=== PATIENT | female | born 1985 | race Asian ===

== ENCOUNTER 2018-05-20 07:42 | Inpatient (IN) ==
[2018-05-20] MEDS ORDERED: OXYTOCIN 30 UNITS/500 ML BAG IV PRN ×2 (08:00→08:04)
[2018-05-20] MEDS ORDERED: LACTATED RINGER'S 1,000 ML IV PRN ×3 (08:00→09:46)
--- NOTE | 2018-05-20 08:04 | History & Physical Report ---
Date of Service May 20, 2018 41 weeks and 3 days primary production received cervical Aragon last night patient is having some contractions at this time and her heart rate is category 1 group B strep positive otherwise uncomplicated Assessment & Plan (1) Post-dates : Induction of labor Pitocin will be ordered penicillin ordered History of Present Illness Primary Care Provider: NO PCP Allergies Allergy/AdvReac Type Severity Reaction Status Date / Time No Known Allergies Allergy Verified 05/15/18 20:18 Home Medications Home Medications Medication Instructions Recorded Confirmed Type vit no.781-[id number]-ptnef 1 tab PO DAILY 05/15/18 05/19/18 History [ Vitamin] Patient History Social History Preferred Language: Congolese marital status: Feels Safe at Home: Yes Smoking Status: Never smoker Hx Alcohol Use: No Hx Substance Use: No Physical Exam Physical Exam: Vital signs stayed stable chest clear normal rate and rhythm abdomen gravid Cervix 5 cm -2, 80%
[2018-05-20] MEDS ORDERED: PENICILLIN G POTASSIUM 6 MU in DEXTROSE 5% 250 ML IV STA (08:05)
[2018-05-20 08:20] LABS: Hematocrit (blood only) 36.4 % (37-47); Hemoglobin 12.7 g/dL (12.0-16.0); Mean Corpuscular Volume 98.1 fL (80-100); Mean Platelet Volume 10.4 fL (7.4-10.4); Platelet Count 186 K/uL (130-400); RDW Coefficient of Variation 12.6 % (11.5-14.5); RDW Standard Deviation 44.6 fL (36.4-46.3); Red Blood Count 3.71 M/uL (4.2-5.4); White Blood Count 6.93 K/uL (4.8-10.8)
[2018-05-20 08:24] LABS: Mean Corpuscular Hgb Conc 34.9 g/dL (32-36)
[2018-05-20] MEDS: LACTATED RINGER'S 1,000 ML IV SCH ×2 (08:39→17:49)
--- NOTE | 2018-05-20 08:39 | History & Physical Report ---
Date of Service May 20, 2018 Assessment & Plan (1) Post-dates : Donis Mane is 33 y/o who presents for induction of labor at 41.4 weeks for post-dates . She is B+, GBS+, Rubella immune, VDRL unreactive, G/C-. Noted that she has not had prior exposure or vaccination to varicella. - Induction of labor, continue routine care. - Epidural analgesia for pain management plan. History of Present Illness Chief Complaint: Induction of labor Primary Care Provider: NO PCP Donis Mane is 33 y/o who presents for induction of labor at 41.4 weeks for post-dates . She is B+, GBS+, Rubella immune, VDRL unreactive, G/C-. Noted that she has not had prior exposure or vaccination to varicella. Otherwise, no acute concerns. Pain management plan is for epidural. 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 or abnormal paps Review of Systems All systems reviewed & are unremarkable except as noted in HPI & below Physical Exam Vital Signs (Past 24 Hours): Last Vital Signs Temp 36.7 C 05/20/18 08:07 Pulse 72 05/20/18 08:04 Resp 18 05/20/18 08:07 BP 112/78 05/20/18 08:04 Constitutional: WD/WN, vitals as above cooperative and comfortable Eyes: + anicteric sclerae and EOM intact bilaterally Neck: normal visual inspection and trachea midline Respiratory: normal respiratory effort, lungs clear to auscultation Cardiovascular: RRR, no murmur, no edema Gastrointestinal (Abdomen): Percussion/Palpation: abdomen nontender gravid uterus Musculoskeletal: Head/Neck/Chest: normocephalic and head atraumatic Skin: no rashes, warm and dry Neurologic: moves all extremities and awake Psychiatric: A+Ox3, euthymic affect Genitourinary: OB Exam Monitor Tracing: + external FHT monitor used, + external uterine monitor used and + category I EFM: Baseline 145 with moderate variability, accels present, no decels Tocodynamometer: mild irregular contractions Results & Data Laboratory Results Laboratory Results - last 24 hr 05/20/18 08:09 WBC 6.93 RBC 3.71 L Hgb 12.7 Hct 36.4 L MCV 98.1 MCH 34.2 H MCHC 34.9 RDW Std Deviation 44.6 RDW Coeff of Naeem 12.6 Plt Count 186 MPV 10.4 Code Status & VTE Plan Code Status full
--- NOTE | 2018-05-20 08:56 | Anesthesiology Consultation ---
Date of Service May 20, 2018 Assessment & Plan Chart Review Chart Review: Patient NOT seen in Pre Admission Testing and Acceptable Risk for Labor Epidural Consults Requested none ASA ASA2 Proposed Anesthesia Anesthesia Type: Labor Epidural Risk / Benefits Reviewed With: PT / POA / Parent / Guardian, Accepts Plan and Informed Consent Obtained NPO Date Last Intake of Fluids: 05/20/18 Time Last Intake of Fluids: 07:00 Date Last Intake of Solids: 05/20/18 Time Last Intake of Solids: 07:00 History Height/Weight Height: 1.73 m Weight: 64.41 kg Allergies Allergy/AdvReac Type Severity Reaction Status Date / Time No Known Allergies Allergy Verified 05/15/18 20:18 Medications Home Medications Medication Instructions Recorded Confirmed Last Taken vit no.[id number]-[id number] 1 tab PO DAILY 05/15/18 05/19/18 05/19/18 [ Vitamin] Active Medications Generic Name Dose Route Start Last Admin Trade Name Freq PRN Reason Stop Dose Admin Lactated Ringer's 1,000 mls @ 125 mls/hr 05/20/18 08:00 05/20/18 08:39 Lr IV 05/22/18 07:59 125 mls/hr .Q8H FREDA Administration Past Medical History Medical History Post-dates GERD (gastroesophageal reflux disease) Occasional Past Anesthesia History Denies any h/o or FM of previous anesthesia Motion Sickness Screening History of Motion Sickness: No Social History Smoking Status: Never smoker Do You Dip or Chew Tobacco: No Hx Alcohol Use: No Hx Substance Use: No substance use type: does not use Exercise / Class Metabolic Activity II 4-5 Yardwork/Stairs/Walk up hill Physical Exam Vital Signs Last Vital Signs Temp 36.7 C 05/20/18 08:07 Pulse 72 05/20/18 08:04 Resp 18 05/20/18 08:07 BP 112/78 05/20/18 08:04 ENMT Mouth: no TMJ abnormality and no TMJ clicking Thyromental Distance: > or= 3.5 Finger Breadths Mallampati Class: II Neck normal visual inspection; neck extension not limited Respiratory Auscultation: lungs clear to auscultation bilaterally Cardiovascular Rate/Rhythm: regular rate and regular rhythm Testing Laboratory Results 05/20/18 08:09
[2018-05-20] MEDS ORDERED: ePHEDrine sulfate 50 MG/ML AMP ONE ×2 (09:25→20:54)
[2018-05-20] MEDS ORDERED: BUPIVACAINE 0.25% 30 ML VIAL ONE (09:25)
[2018-05-20] MEDS ORDERED: fentaNYL 2MCG/ML ROPIV 1.25MG/ML 100 ML BAG EPI ONE (09:26)
[2018-05-20] MEDS: fentaNYL citrate 100 MCG/2 ML VIAL ONE ×2 (09:29→09:30)
[2018-05-20] MEDS ORDERED: NALOXONE HCL 1 MG in SODIUM CHLORIDE 0.9% 1000ML 1,000 ML IV PRN ×2 (09:46→21:08)
[2018-05-20] MEDS ORDERED: fentaNYL 2MCG/ML ROPIV 1.25MG/ML 100 ML BAG EPI PRN (09:46)
[2018-05-20] MEDS ORDERED: DiphenhydrAMINE HCL 50 MG/ML VIAL IV PRN ×2 (09:46→21:08)
[2018-05-20] MEDS ORDERED: ePHEDrine sulfate 50 MG/ML AMP IV PRN ×3 (09:46→21:08)
[2018-05-20] MEDS ORDERED: NALBUPHINE HCL INJ 10 MG/ML AMP IV PRN ×2 (09:46→21:08)
[2018-05-20] MEDS ORDERED: PROMETHAZINE HCL 12.5 MG in SODIUM CHLORIDE 0.9% 50 ML IV PRN ×2 (09:46→19:56)
[2018-05-20] MEDS ORDERED: NALOXONE HCL 0.4 MG/1 ML VIAL/CARP IV PRN ×2 (09:46→21:08)
[2018-05-20] MEDS ORDERED: ONDANSETRON INJ 2 MG/ML 2 ML VIAL IV PRN ×2 (09:46→19:56)
--- NOTE | 2018-05-20 11:42 | Obstetrical Progress Note ---
Date of Service May 20, 2018 Requested epidural. Still 5cm, -2. AROM for clear fluid. Continue Pitocin and PCN Cat 1 Physical Exam Vital Signs (Past 24 Hours): Last Vital Signs Temp 36.7 C 05/20/18 10:51 Pulse 85 05/20/18 11:36 Resp 18 05/20/18 10:51 BP 114/64 05/20/18 11:35 Pulse Ox 98 05/20/18 11:36
[2018-05-20] MEDS: PENICILLIN G POTASSIUM 3 MU in DEXTROSE 5% 100 ML IV PRN ×3 (12:37→16:41)
--- NOTE | 2018-05-20 14:18 | Obstetrical Progress Note ---
Date of Service May 20, 2018 Cervix still 5 cm -1 there is no molding she is on Pitocin heart rate category 1 I placed an IUPC to determine if her contractions are adequate Physical Exam Vital Signs (Past 24 Hours): Last Vital Signs Temp 36.5 C 05/20/18 13:25 Pulse 54 L 05/20/18 14:16 Resp 18 05/20/18 14:00 BP 105/70 05/20/18 13:30 Pulse Ox 98 05/20/18 14:16
--- NOTE | 2018-05-20 16:09 | Obstetrical Progress Note ---
Date of Service May 20, 2018 250 MVU. Adequate Physical Exam Vital Signs (Past 24 Hours): Last Vital Signs Temp 36.6 C 05/20/18 15:31 Pulse 52 L 05/20/18 16:06 Resp 20 05/20/18 15:31 BP 107/67 05/20/18 15:31 Pulse Ox 98 05/20/18 16:06
--- NOTE | 2018-05-20 17:53 | Obstetrical Progress Note ---
Date of Service May 20, 2018 Cervix 6 cm now heart rate is category 1 contractions are adequate by [place] units Patient has progressed from 5 cm to 6 cm from 8 in the morning to approximately 6 PM at night this is certainly slow progress. Discussed checking her again in approximately 90 minutes certainly contractions are strong enough and I did dis cuss the possibility of section Physical Exam Vital Signs (Past 24 Hours): Last Vital Signs Temp 36.6 C 05/20/18 15:31 Pulse 71 05/20/18 17:51 Resp 20 05/20/18 16:32 BP 119/67 05/20/18 17:31 Pulse Ox 99 05/20/18 17:51
[2018-05-20] MEDS ORDERED: ATROPINE SULFATE 0.1 MG/ML 10ML SYR IV PRN (19:56)
[2018-05-20] MEDS ORDERED: fentaNYL citrate 100 MCG/2 ML VIAL IV PRN (19:56)
[2018-05-20] MEDS ORDERED: PHENYLEPHRINE 100MCG/ML 5ML SYR IV PRN (19:56)
--- NOTE | 2018-05-20 19:58 | Anesthesiology Consultation ---
Date of Service May 20, 2018 Assessment & Plan Chart Review Chart Review: Acceptable Risk for Surgery and Patient NOT seen in Pre Admission Testing Consults Requested none ASA ASA2E Proposed Anesthesia Anesthesia Type: MAC Epidural Risk / Benefits Reviewed With: PT / POA / Parent / Guardian, Accepts Plan and Informed Consent Obtained NPO Date Last Intake of Fluids: 05/20/18 Time Last Intake of Fluids: 19:00 Date Last Intake of Solids: 05/20/18 Time Last Intake of Solids: 07:00 History Surgery Operation Date: 05/20/18 19:55 Proposed Procedures p Section in LD - J. Hank Singh MD, FACOG Height/Weight Height: 1.73 m Weight: 64.41 kg Allergies Allergy/AdvReac Type Severity Reaction Status Date / Time No Known Allergies Allergy Verified 05/15/18 20:18 Medications Home Medications Medication Instructions Recorded Confirmed Last Taken vit no.775-ofxr-[id number] 1 tab PO DAILY 05/15/18 05/20/18 05/20/18 [ Vitamin] 1 Active Medications Generic Name Dose Route Start Last Admin Trade Name Freq PRN Reason Stop Dose Admin Citric Acid/Sodium Citrate 30 ml 05/20/18 20:15 05/20/18 20:15 Bicitra PO 05/20/18 22:00 30 ml PREOP@2014 FREDA Administration Lactated Ringer's 1,000 mls @ 999 mls/hr 05/20/18 08:00 05/20/18 10:03 Lr IV 06/19/18 07:59 0 mls/hr .Q1H1M PRN Infusion (Pre-Anesthesia) Lactated Ringer's 1,000 mls @ 125 mls/hr 05/20/18 08:00 05/20/18 17:49 Lr IV 05/22/18 07:59 125 mls/hr .Q8H FREDA Administration Penicillin G Potassium 3 mu/ 106 mls @ 100 mls/hr 05/20/18 12:00 05/20/18 1 6:41 Dextrose IV 05/30/18 11:59 106 mls/hr Q4H PRN Administration Give until delivery Oxytocin 30 units in 500 mls @ 21 mls/hr 05/20/18 08:04 05/20/18 16:40 Pitocin IV 05/22/18 08:03 1.26 units/hr .[id number] PRN 21 mls/hr Labor Induction/Augmentation Titration Protocol 1.26 UNITS/HR Cefazolin Sodium 2,000 mg in 15 mls @ 3.75 mls/min 05/20/18 20:15 05/20/18 20:22 Ancef 2000mg IV 05/20/18 22:00 3.75 mls/min PREOP@2015 FREDA Administration Ondansetron HCl 4 mg 05/20/18 09:46 05/20/18 12:41 Zofran IV 05/21/18 09:45 4 mg Q6H PRN Administration Nausea And Vomiting Ropivacaine 100 ml 05/20/18 09:46 05/20/18 16:24 Epidural (L&D) EPI 05/21/18 09:45 12 ml PRN PRN Administration Pain R/T Labor Protocol Past Medical History Medical History Post-dates GERD (gastroesophageal reflux disease) Occasional No known health problems Past Family History Family History Other No history of previous surgery No known health problems Past Surgical History Surgical History No history of previous surgery Past Anesthesia History Denies any h/o or FM of previous anesthesia Motion Sickness Screening History of Motion Sickness: No Social History Smoking Status: Never smoker Do You Dip or Chew Tobacco: No Hx Alcohol Use: No Hx Substance Use: No substance use type: does not use Exercise / Class Metabolic Activity II 4-5 Yardwork/Stairs/Walk up hill Physical Exam Vital Signs Last Vital Signs Temp 36.9 C 05/20/18 19:07 Pulse 75 05/20/18 20:21 Resp 20 05/20/18 18:10 BP 119/76 05/20/18 20:19 Pulse Ox 100 05/20/18 20:21 ENMT Mouth: no TMJ abnormality and no TMJ clicking Thyromental Distance: > or= 3.5 Finger Breadths Mallampati Class: II Neck normal visual inspection; neck extension not limited Respiratory Auscultation: lungs clear to auscultation bilaterally Cardiovascular Rate/Rhythm: regular rate and regular rhythm Testing Laboratory Results 05/20/18 08:09 Blood Type B Positive 05/20/18 08:09 Antibody Screen NEGATIVE 05/20/18 08:09
[2018-05-20] MEDS ORDERED: OXYTOCIN 10 UNITS/ML VIAL ONE ×3 (20:02)
[2018-05-20] MEDS ORDERED: MoRPHine SULFATE PF 1 MG/ML 10 ML AMP/VIAL ONE (20:03)
[2018-05-20] MEDS ORDERED: fentaNYL citrate 100 MCG/2 ML VIAL ONE (20:03)
--- NOTE | 2018-05-20 20:03 | Obstetrical Progress Note ---
Date of Service May 20, 2018 Patient is still 6 cm has adequate labor by [facility] with an IUPC she arrived 12 hours ago at 5 cm and despite Pitocin AROM is not progressing there is significantly more molding as well I have recommended section the patient agrees I did offer labor and continued induction discussed the risks of this we discussed the risks of especially the risks of infection with prolonged rupture of membranes being higher in her case we discussed also risks of injury to bowel bladder ureter vessels deep vein thrombosis pulmonary embolus will make arrangements for section Physical Exam Vital Signs (Past 24 Hours): Last Vital Signs Temp 36.9 C 05/20/18 19:07 Pulse 85 05/20/18 19:56 Resp 20 05/20/18 18:10 BP 135/75 05/20/18 19:50 Pulse Ox 100 05/20/18 19:56
[2018-05-20] MEDS ORDERED: CEFAZOLIN 2000MG 2,000 MG/15 ML SYR IV SCH (20:15)
[2018-05-20] MEDS ORDERED: CITRIC ACID/SODIUM CITRATE 15 ML UDC PO SCH (20:15)
--- NOTE | 2018-05-20 20:16 | History & Physical Bridge Note ---
Date of Service May 20, 2018 Plan Section History & Physical Bridge Note I have examined the patient, reviewed the History & Physical and in the interval since the performance of the History & Physical I have noted the following changes of clinical significance: no changes noted
[2018-05-20] MEDS ORDERED: PROMETHAZINE HCL INJ 25 MG/ML 1 ML VIAL ONE (20:55)
[2018-05-20] MEDS ORDERED: PHENYLEPHRINE HCL 10 MG/ML VIAL ONE (20:55)
[2018-05-20] MEDS ORDERED: NALOXONE HCL 0.08 MG in SYRINGE 1.8 ML IV PRN (21:08)
[2018-05-20] MEDS ORDERED: KETOROLAC 30 MG/ML VIAL IV PRN (21:08)
[2018-05-20] MEDS ORDERED: MoRPHine SULFATE PF 1 MG/ML 10 ML AMP/VIAL EPI ONE (21:08)
[2018-05-20] MEDS ORDERED: MEPERIDINE HCL 25 MG/ML CARP IV PRN (21:08)
[2018-05-20] MEDS ORDERED: PROMETHAZINE HCL 25 MG in SODIUM CHLORIDE 0.9% 50 ML IV PRN (21:08)
[2018-05-20] MEDS ORDERED: LACTATED RINGER'S 500 ML IV PRN (21:08)
[2018-05-20] MEDS ORDERED: MoRPHine SULFATE 2 MG/ML CARP IV PRN (21:08)
[2018-05-20] MEDS ORDERED: NO NARCOTICS OR SEDATIVES SCH (21:15)
[2018-05-20] MEDS ORDERED: SODIUM CHLORIDE 0.9% 1000ML 1,000 ML IV SCH (21:15)
[2018-05-20] MEDS ORDERED: SUPERCREAM 0.870% 15 GM JAR EXT PRN (21:20)
[2018-05-20] MEDS ORDERED: MAGNESIUM HYDROXIDE SUSP 30 ML UDC PO PRN (21:20)
[2018-05-20] MEDS ORDERED: HYDROCORTISONE ACETATE 25 MG SUPP PR PRN (21:20)
[2018-05-20] MEDS ORDERED: DIPHTHERIA/TETANUS/PERTUSSIS 0.5 ML SYR/VIAL IM ONE (21:20)
[2018-05-20] MEDS ORDERED: BENZOCAINE 20% AER SPR 82.5 GM CAN EXT PRN (21:20)
[2018-05-20] MEDS ORDERED: SENNA 8.6 MG TAB PO PRN (21:20)
[2018-05-20] MEDS ORDERED: LACTATED RINGER'S 1,000 ML IV SCH (21:30)
--- NOTE | 2018-05-20 21:30 | Operative Report ---
Post Operative Report Pre & Post Diagnosis Operation Date: 05/20/18 19:55 <No data on this case meets the specified criteria> Preoperative diagnosis failure to progress postoperative diagnosis failure to progress Procedure Operation Date: 05/20/18 19:55 <No data on this case meets the specified criteria> Low segment transverse section Surgeon Lillian Singh MD, FACOG Ornamental [employer] BROOKLYNN Angelo Estimated Blood Loss 600 Findings Consistent with Post-Op Diagnosis Specimens Cord gases cord blood Description of Procedure Patient was given an increase in epidural anesthetic Aragon catheter placed by nursing she was in a leftward tilt in a supine position prepped and draped IV antibiotics 2 g Ancef given preoperatively skin was tested with pickups with teeth and found to be adequate for incision Pfannenstiel incision made with scalpel dissecting down through subcutaneous fat to the fascia in the midline fascia cut laterally with the curved Abrams scissors and fascia released superiorly and inferiorly from the rectus muscles rectus muscle split peritoneal cavity entered bluntly in a superior location this was then enlarged to allow exposure bladder retractor placed [facility] to cut away the bladder flap and the low segment. Low transverse incision made with scalpel entry was done bluntly with the header setup operator's finger and then hysterotomy site enlarged to allow delivery of the baby manually with the header setup operator's finger baby was delivered in a vertex position by flexion of the head and then pressure by the bilingual executive assistant on the abdomen tight nuchal cord had to be clamped and cut before delivery of the baby fluid was clear live vigorous male infant. Cord gases obtained cord blood obtained baby was handed to pediatrics Placenta was removed uterus was exteriorized we ensured all material was removed from inside of the uterus on inspection the adnexa were normal as was the uterus IV Pitocin was started and then uterus was closed in the usual 2 layer fashion with 0 Monocryl first layer locked second layer not locked after generous irrigation and suction of the cul-de-sac and bladder flap regions of the uterus was placed back in the peritoneal cavity and hemostasis was found to be excellent urine was clear in the Aragon bag at this stage Fascia was inspected and subfascial areas were hemostatic fascia closed with 0 Vicryl subtendinous fat irrigated and closed with 3-0 Vicryl 4-0 subcuticular Monocryl closure and Steri-Strips applied sponge management counts correct I attest to the content of the Intraoperative Record and any orders documented therein. Any exceptions are noted below.
[2018-05-20 21:31] LABS: Base Excess Cord Venous Blood -1.9 mEq/L (-7.7-1.9); Cord Venous Blood HCO3 25 mmol/L (18.4-26.8); Cord Venous Blood PCO2 48 mmHg (30.4-57.2); Cord Venous Blood PO2 28 mmHg (14.1-43.3); Cord Venous Blood pH 7.33 (7.20-7.44); O2 Saturation Cord Venous Bld 62.9 % (<68)
--- NOTE | 2018-05-20 22:56 | Anesthesiology Progress Note ---
Date of Service May 20, 2018 Anesthesia Post Procedure Vital Signs Vital Signs: Temp Pulse Resp BP Pulse Ox Pulse Ox 05/20/18 22:50 62 99 05/20/18 22:47 82 117/76 05/20/18 22:45 78 98 05/20/18 22:40 86 99 05/20/18 22:37 89 112/79 05/20/18 22:35 72 99 05/20/18 22:30 84 99 05/20/18 22:27 77 18 121/59 L 97 05/20/18 22:25 94 H 99 05/20/18 22:20 86 97 05/20/18 22:17 87 18 117/69 97 05/20/18 22:15 83 98 05/20/18 22:10 90 97 05/20/18 22:06 109 H 18 127/64 97 05/20/18 22:05 103 H 96 05/20/18 22:00 102 H 99 05/20/18 21:57 100 H 98 05/20/18 21:55 92 H 98 05/20/18 21:50 99 H 98 05/20/18 21:47 90 18 108/62 98 05/20/18 21:45 97 H 97 05/20/18 21:42 110 H 91 05/20/18 21:40 96 H 96 05/20/18 21:37 107 H 18 91/50 L 97 05/20/18 21:36 103 H 90 05/20/18 21:35 97 H 97 05/20/18 21:30 98 H 97 05/20/18 21:27 36.5 C 105 H 18 95/55 L 97 05/20/18 20:21 75 100 05/20/18 20:19 82 119/76 05/20/18 20:17 64 128/76 05/20/18 20:16 72 99 05/20/18 20:11 76 99 05/20/18 20:08 66 94 05/20/18 20:06 73 133/91 100 05/20/18 20:01 78 100 05/20/18 19:56 85 100 05/20/18 19:51 103 H 100 05/20/18 19:50 68 135/75 05/20/18 19:46 60 100 05/20/18 19:41 58 L 100 05/20/18 19:36 57 L 100 05/20/18 19:34 60 131/78 05/20/18 19:31 59 L 100 05/20/18 19:26 58 L 100 05/20/18 19:21 69 100 05/20/18 19:20 57 L 127/73 05/20/18 19:16 68 100 05/20/18 19:15 58 L 130/72 05/20/18 19:13 193/141 H 05/20/18 19:11 62 100 05/20/18 19:07 36.9 C 61 91 05/20/18 19:06 65 95 05/20/18 19:01 60 100 05/20/18 18:56 63 100 05/20/18 18:51 58 L 100 05/20/18 18:46 61 100 05/20/18 18:41 59 L 100 05/20/18 18:36 59 L 100 05/20/18 18:31 60 100 05/20/18 18:30 60 122/73 05/20/18 18:26 72 100 05/20/18 18:25 95 H 91 05/20/18 18:21 66 100 05/20/18 18:16 85 100 05/20/18 18:15 77 93 05/20/18 18:11 58 L 100 05/20/18 18:10 37.1 C 20 05/20/18 18:06 62 100 05/20/18 18:01 61 99 05/20/18 18:00 20 05/20/18 17:56 60 100 05/20/18 17:52 71 91 05/20/18 17:51 71 99 05/20/18 17:46 96 H 99 05/20/18 17:41 60 89 L 05/20/18 17:39 59 L 90 05/20/18 17:36 54 L 99 05/20/18 17:31 54 L 119/67 100 05/20/18 17:26 53 L 100 05/20/18 17:21 53 L 100 05/20/18 17:16 55 L 100 05/20/18 17:15 37.1 C 05/20/18 17:11 52 L 100 05/20/18 17:06 54 L 100 05/20/18 17:01 52 L 100 05/20/18 16:56 53 L 100 05/20/18 16:51 54 L 96 05/20/18 16:46 51 L 100 05/20/18 16:41 50 L 100 05/20/18 16:36 70 99 05/20/18 16:34 60 90 05/20/18 16:33 51 L 90/54 L 05/20/18 16:32 20 05/20/18 16:31 54 L 99 05/20/18 16:26 64 98 05/20/18 16:21 52 L 100 05/20/18 16:16 52 L 99 05/20/18 16:11 52 L 99 05/20/18 16:06 52 L 98 05/20/18 16:05 54 L 94 05/20/18 16:01 54 L 99 05/20/18 15:56 55 L 98 05/20/18 15:51 53 L 99 05/20/18 15:46 52 L 97 05/20/18 15:41 54 L 99 05/20/18 15:36 55 L 98 05/20/18 15:31 36.6 C 55 L 20 107/67 100 05/20/18 15:26 52 L 100 05/20/18 15:21 54 L 99 05/20/18 15:16 55 L 99 05/20/18 15:11 54 L 98 05/20/18 15:06 53 L 99 05/20/18 15:01 50 L 98 05/20/18 14:58 62 92 05/20/18 14:56 52 L 98 05/20/18 14:51 55 L 99 05/20/18 14:46 56 L 98 05/20/18 14:41 50 L 98 05/20/18 14:36 49 L 97 05/20/18 14:31 59 L 81/53 L 98 05/20/18 14:26 53 L 97 05/20/18 14:21 51 L 98 05/20/18 14:16 54 L 98 05/20/18 14:11 53 L 98 05/20/18 14:06 53 L 97 05/20/18 14:01 55 L 98 05/20/18 14:00 18 05/20/18 13:56 53 L 98 05/20/18 13:51 54 L 97 05/20/18 13:46 61 97 05/20/18 13:41 57 L 98 05/20/18 13:36 58 L 98 05/20/18 13:31 56 L 98 05/20/18 13:30 53 L 105/70 05/20/18 13:26 56 L 97 05/20/18 13:25 36.5 C 18 05/20/18 13:21 55 L 98 05/20/18 13:16 61 98 05/20/18 13:11 74 96 05/20/18 13:06 55 L 97 05/20/18 13:01 59 L 97 05/20/18 12:56 59 L 97 05/20/18 12:51 57 L 97 05/20/18 12:46 52 L 97 05/20/18 12:41 58 L 98 05/20/18 12:36 55 L 98 05/20/18 12:32 52 L 18 115/72 05/20/18 12:31 58 L 99 05/20/18 12:26 58 L 98 05/20/18 12:21 57 L 98 05/20/18 12:16 55 L 98 05/20/18 12:11 63 98 05/20/18 12:06 57 L 98 05/20/18 12:01 59 L 98 05/20/18 12:00 18 05/20/18 11:56 58 L 97 05/20/18 11:51 60 98 05/20/18 11:46 59 L 99 05/20/18 11:41 74 99 05/20/18 11:36 85 98 05/20/18 11:35 115 H 114/64 05/20/18 11:31 57 L 99 05/20/18 11:26 53 L 99 05/20/18 11:21 56 L 99 05/20/18 11:19 51 L 105/70 05/20/18 11:16 68 98 05/20/18 11:11 56 L 98 05/20/18 11:06 57 L 114/72 98 05/20/18 11:01 60 97 05/20/18 10:56 58 L 98 05/20/18 10:51 36.7 C 60 18 98 05/20/18 10:49 56 L 115/77 05/20/18 10:46 72 96 05/20/18 10:41 62 99 05/20/18 10:36 63 98 05/20/18 10:34 64 110/73 05/20/18 10:31 69 98 05/20/18 10:30 18 05/20/18 10:26 58 L 98 05/20/18 10:21 65 97 05/20/18 10:19 60 107/62 05/20/18 10:16 66 97 05/20/18 10:15 18 05/20/18 10:11 69 97 05/20/18 10:06 65 111/76 98 05/20/18 10:01 63 97 05/20/18 10:00 18 05/20/18 09:56 77 108/75 99 05/20/18 09:51 69 98 05/20/18 09:46 69 98 05/20/18 09:45 68 18 110/68 05/20/18 09:43 86 110/63 05/20/18 09:41 81 107/62 99 05/20/18 09:40 18 05/20/18 09:39 78 116/64 05/20/18 09:37 67 106/60 05/20/18 09:36 85 100 05/20/18 09:35 90 18 157/79 H 05/20/18 09:33 72 121/86 05/20/18 09:31 80 120/83 98 05/20/18 09:30 18 05/20/18 09:29 72 118/79 05/20/18 09:27 72 114/85 05/20/18 09:26 76 98 05/20/18 09:25 76 112/74 05/20/18 09:23 71 130/83 05/20/18 09:21 78 130/77 98 05/20/18 09:19 77 133/76 05/20/18 09:17 70 117/76 05/20/18 09:16 80 97 05/20/18 09:15 81 116/82 99 05/20/18 09:13 78 119/83 05/20/18 09:11 71 125/75 98 05/20/18 08:07 36.7 C 18 05/20/18 08:04 72 112/78 Pain Intensity Bilateral Abdomen: Pain Intensity: 0 Notes Mental Status: alert / awake / arousable Patient Amnestic to Procedure: Yes Nausea / Vomiting: adequately controlled Pain: adequately controlled Airway Patency, RR, SpO2: stable & adequate BP & HR: stable & adequate Neuraxial Anesthesia: was administered and sensory block is resolving Anesthetic Complications: no major complications apparent Notes: Doing well, VSS.
--- NOTE | 2018-05-20 22:56 | Anesthesia Procedure Note ---
Date of Service May 20, 2018 Anesthesia Post Epidural Note Vital Signs Vital Signs: Temp Pulse Resp BP Pulse Ox 36.5 C 62 18 117/76 99 05/20/18 21:27 05/20/18 22:50 05/20/18 22:27 05/20/18 22:47 05/20/18 22:50 Pain Intensity Bilateral Abdomen: Pain Intensity: 0 Notes Mental Status: alert / awake / arousable Patient Amnestic to Procedure: No Nausea / Vomiting: adequately controlled Pain: adequately controlled Airway Patency, RR, SpO2: stable & adequate BP & HR: stable & adequate Hydration State: stable & adequate Anesthetic Complications: no major complications apparent Epidural: Removed without complications and With tip intact Notes: Pt doing well. No complaints of RUBALCAVA, backache. Epidural site looks clean and dry without signs of erythema or edema.
[2018-05-20] MEDS ORDERED: OXYTOCIN 30 UNITS in LACTATED RINGER'S 1,000 ML IV SCH (23:45)
--- NOTE | 2018-05-21 07:02 | Obstetrical Progress Note ---
Date of Service <Arturo Whitehead DO - Last Filed: 05/21/18 07:02> May 21, 2018 Assessment & Plan <Arturo Whitehead DO - Last Filed: 05/21/18 07:02> (1) delivery delivered: Donis Mane is 33 y/o who presents for induction of labor at 41.4 weeks for post-dates . She is B+, GBS+, Rubella immune, VDRL unreactive, G/C-. Noted that she has not had prior exposure or vaccination to varicella. - for failure to descent after induction of labor - continue with routine post-op/ care (2) Post-dates : Donis Mane is 33 y/o who presents for induction of labor at 41.4 weeks for post-dates . She is B+, GBS+, Rubella immune, VDRL unreactive, G/C-. Noted that she has not had prior exposure or vaccination to varicella. Subjective <Arturo Whitehead DO - Last Filed: 05/21/18 07:02> Lochia:: Reny Dykes states she is doing well this morning. She denies fever, chills, chest pain, shortness of breath, nausea, vomiting. Physical Exam <Arturo Whitehead DO - Last Filed: 05/21/18 07:02> Vital Signs (Past 24 Hours) Last Vital Signs Temp 36.9 C 05/21/18 03:30 Pulse 60 05/21/18 03:30 Resp 18 05/21/18 06:24 BP 113/67 05/21/18 03:30 Pulse Ox 98 05/21/18 06:24 Constitutional WD/WN, vitals as above cooperative and comfortable Eyes + anicteric sclerae and EOM intact bilaterally Neck normal visual inspection and trachea midline Respiratory normal respiratory effort, lungs clear to auscultation Cardiovascular RRR, no murmur, no edema Gastrointestinal (Abdomen) Percussion/Palpation: abdomen nontender surgical bandage over surgical wound is intact, dry. Musculoskeletal Head/Neck/Chest: normocephalic and head atraumatic Skin no rashes, warm and dry Neurologic moves all extremities and awake Psychiatric A+Ox3, euthymic affect Results & Data <Arturo Whitehead DO - Last Filed: 05/21/18 07:02> Laboratory Results Laboratory Results - last 24 hr 05/20/18 05/20/18 05/20/18 08:09 08:09 20:46 WBC 6.93 RBC 3.71 L Hgb 12.7 Hct 36.4 L MCV 98.1 MCH 34.2 H MCHC 34.9 RDW Std Deviation 44.6 RDW Coeff of Naeem 12.6 Plt Count 186 MPV 10.4 Cord ABG pH Cord ABG pCO2 TNP Cord ABG pO2 TNP Cord ABG HCO3 TNP Cord ABG Base Excess TNP Cord ABG O2 Sat TNP Cord VBG pH Cord VBG pCO2 Cord VBG pO2 Cord VBG HCO3 Cord VBG Base Excess Cord VBG O2 Sat Barometric Pressure Blood Gas Comments TNP Blood Type B Positive Antibody Screen NEGATIVE 05/20/18 20:46 WBC RBC Hgb Hct MCV MCH MCHC RDW Std Deviation RDW Coeff of Naeem Plt Count MPV Cord ABG pH Cord ABG pCO2 Cord ABG pO2 Cord ABG HCO3 Cord ABG Base Excess Cord ABG O2 Sat Cord VBG pH 7.33 Cord VBG pCO2 48 Cord VBG pO2 28 Cord VBG HCO3 25 Cord VBG Base Excess -1.9 Cord VBG O2 Sat 62.9 Barometric Pressure 726.7 Blood Gas Comments INFANT A Blood Type Antibody Screen Medications Administered Oxytocin 30 units/ Lactated (Ringer's) 1,003 mls @ 125 mls/hr IV .Q8H2M FREDA Stop: 05/21/18 07:46 Last Infusion: 05/21/18 06:23 Dose: 125 mls/hr Documented by: [id number] Cosigned by: [id number] Admin: 05/20/18 23:41 Dose: 125 mls/hr Documented by: [id number] Cosigned by: [id number] <Lillian Singh MD, FACOG - Last Filed: 05/21/18 07:09> Co-Signing Physician Notes Resident Physician Supervision Note: I interviewed and examined the patient. Discussed with Dr. Waggoner and agree with findings and plan as documented in the note. Any exceptions or clarifica tions are listed here: [None] Documented By: Lillian Singh MD, FACOG
[2018-05-21 07:24] LABS: Basophils # (auto) 0.01 K/uL (0-0.2); Basophils % (auto) 0.1 %; Hematocrit (blood only) 31.4 % (37-47); Hemoglobin 10.7 g/dL (12.0-16.0); Immature Granulocytes # (auto) 0.02 K/uL (0.00-0.02); Immature Granulocytes % (auto) 0.2 %; Lymphocytes # (auto) 1.54 K/uL (1.2-3.4); Lymphocytes % (auto) 12.4 %; Mean Corpuscular Hgb Conc 34.1 g/dL (32-36); Mean Corpuscular Volume 96.6 fL (80-100); Mean Platelet Volume 10.3 fL (7.4-10.4); Monocytes # (auto) 0.59 K/uL (0.11-0.59); Monocytes % (auto) 4.8 %; Neutrophils # (auto) 10.23 K/uL (1.4-6.5); Neutrophils % (auto) 82.5 %; Platelet Count 156 K/uL (130-400); RDW Coefficient of Variation 12.8 % (11.5-14.5); RDW Standard Deviation 44.6 fL (36.4-46.3); Red Blood Count 3.25 M/uL (4.2-5.4); White Blood Count 12.39 K/uL (4.8-10.8)
[2018-05-21] MEDS: DOCUSATE SODIUM 100 MG CAP PO SCH ×2 (08:58→20:28)
[2018-05-21] MEDS: PRENATAL VITAMIN 1 TAB PO SCH (08:58)
[2018-05-21] MEDS ORDERED: PRENATAL VITAMIN 1 TAB PO SCH (09:00)
[2018-05-21] MEDS: SIMETHICONE 80 MG CHEW PO SCH ×4 (10:04→20:28)
--- NOTE | 2018-05-21 10:12 | Anesthesiology Progress Note ---
Date of Service May 21, 2018 Anesthesia Post Procedure Vital Signs Vital Signs: Temp Pulse Pulse Resp BP BP Pulse Ox 05/21/18 09:15 15 98 05/21/18 08:00 15 98 05/21/18 07:47 37.5 C 62 16 111/69 98 05/21/18 07:45 05/21/18 07:00 16 98 05/21/18 06:24 18 98 05/21/18 05:29 18 99 05/21/18 04:30 18 98 05/21/18 03:30 36.9 C 60 18 113/67 97 05/21/18 03:04 16 97 05/21/18 01:52 18 99 05/21/18 00:40 20 100 05/20/18 23:45 36.7 C 66 18 125/78 99 05/20/18 23:31 69 132/81 05/20/18 23:30 65 100 05/20/18 23:27 61 16 134/77 05/20/18 23:25 72 99 05/20/18 23:20 71 99 05/20/18 23:17 63 128/74 05/20/18 23:15 64 99 05/20/18 23:10 66 99 05/20/18 23:07 62 127/71 05/20/18 23:05 74 100 05/20/18 23:00 68 96 05/20/18 22:57 37.4 C 91 H 16 120/74 05/20/18 22:55 79 99 05/20/18 22:50 62 99 05/20/18 22:47 82 117/76 05/20/18 22:45 78 98 05/20/18 22:40 86 99 05/20/18 22:37 89 112/79 05/20/18 22:35 72 99 05/20/18 22:30 84 99 05/20/18 22:27 77 18 121/59 L 97 05/20/18 22:25 94 H 99 05/20/18 22:20 86 97 05/20/18 22:17 87 18 117/69 97 05/20/18 22:15 83 98 05/20/18 22:10 90 97 05/20/18 22:06 109 H 18 127/64 97 05/20/18 22:05 103 H 96 05/20/18 22:00 102 H 99 05/20/18 21:57 100 H 98 05/20/18 21:55 92 H 98 05/20/18 21:50 99 H 98 05/20/18 21:47 90 18 108/62 98 05/20/18 21:45 97 H 97 05/20/18 21:42 110 H 91 05/20/18 21:40 96 H 96 05/20/18 21:37 107 H 18 91/50 L 97 05/20/18 21:36 103 H 90 05/20/18 21:35 97 H 97 05/20/18 21:30 98 H 97 05/20/18 21:27 36.5 C 105 H 18 95/55 L 97 05/20/18 20:21 75 100 05/20/18 20:19 82 119/76 05/20/18 20:17 64 128/76 05/20/18 20:16 72 99 05/20/18 20:11 76 99 05/20/18 20:08 66 94 05/20/18 20:06 73 133/91 100 05/20/18 20:01 78 100 05/20/18 20:00 18 05/20/18 19:56 85 100 05/20/18 19:51 103 H 100 05/20/18 19:50 68 135/75 05/20/18 19:46 60 100 05/20/18 19:41 58 L 100 05/20/18 19:36 57 L 100 05/20/18 19:34 60 131/78 05/20/18 19:31 59 L 100 05/20/18 19:26 58 L 100 05/20/18 19:21 69 100 05/20/18 19:20 57 L 127/73 05/20/18 19:16 68 100 05/20/18 19:15 58 L 130/72 05/20/18 19:13 193/141 H 05/20/18 19:11 62 100 05/20/18 19:07 36.9 C 61 91 05/20/18 19:06 65 95 05/20/18 19:01 60 100 05/20/18 18:56 63 100 05/20/18 18:51 58 L 100 05/20/18 18:46 61 100 05/20/18 18:41 59 L 100 05/20/18 18:36 59 L 100 05/20/18 18:31 60 100 05/20/18 18:30 60 122/73 05/20/18 18:26 72 100 05/20/18 18:25 95 H 91 05/20/18 18:21 66 100 05/20/18 18:16 85 100 05/20/18 18:15 77 93 05/20/18 18:11 58 L 100 05/20/18 18:10 37.1 C 20 05/20/18 18:06 62 100 05/20/18 18:01 61 99 05/20/18 18:00 20 05/20/18 17:56 60 100 05/20/18 17:52 71 91 05/20/18 17:51 71 99 05/20/18 17:46 96 H 99 05/20/18 17:41 60 89 L 05/20/18 17:39 59 L 90 05/20/18 17:36 54 L 99 05/20/18 17:31 54 L 119/67 100 05/20/18 17:26 53 L 100 05/20/18 17:21 53 L 100 05/20/18 17:16 55 L 100 05/20/18 17:15 37.1 C 05/20/18 17:11 52 L 100 05/20/18 17:06 54 L 100 05/20/18 17:01 52 L 100 05/20/18 16:56 53 L 100 05/20/18 16:51 54 L 96 05/20/18 16:46 51 L 100 05/20/18 16:41 50 L 100 05/20/18 16:36 70 99 05/20/18 16:34 60 90 05/20/18 16:33 51 L 90/54 L 05/20/18 16:32 20 05/20/18 16:31 54 L 99 05/20/18 16:26 64 98 05/20/18 16:21 52 L 100 05/20/18 16:16 52 L 99 05/20/18 16:11 52 L 99 05/20/18 16:06 52 L 98 05/20/18 16:05 54 L 94 05/20/18 16:01 54 L 99 05/20/18 15:56 55 L 98 05/20/18 15:51 53 L 99 05/20/18 15:46 52 L 97 05/20/18 15:41 54 L 99 05/20/18 15:36 55 L 98 05/20/18 15:31 36.6 C 55 L 20 107/67 100 05/20/18 15:26 52 L 100 05/20/18 15:21 54 L 99 05/20/18 15:16 55 L 99 05/20/18 15:11 54 L 98 05/20/18 15:06 53 L 99 05/20/18 15:01 50 L 98 05/20/18 14:58 62 92 05/20/18 14:56 52 L 98 05/20/18 14:51 55 L 99 05/20/18 14:46 56 L 98 05/20/18 14:41 50 L 98 05/20/18 14:36 49 L 97 05/20/18 14:31 59 L 81/53 L 98 05/20/18 14:26 53 L 97 05/20/18 14:21 51 L 98 05/20/18 14:16 54 L 98 05/20/18 14:11 53 L 98 05/20/18 14:06 53 L 97 05/20/18 14:01 55 L 98 05/20/18 14:00 18 05/20/18 13:56 53 L 98 05/20/18 13:51 54 L 97 05/20/18 13:46 61 97 05/20/18 13:41 57 L 98 05/20/18 13:36 58 L 98 05/20/18 13:31 56 L 98 05/20/18 13:30 53 L 105/70 05/20/18 13:26 56 L 97 05/20/18 13:25 36.5 C 18 05/20/18 13:21 55 L 98 05/20/18 13:16 61 98 05/20/18 13:11 74 96 05/20/18 13:06 55 L 97 05/20/18 13:01 59 L 97 05/20/18 12:56 59 L 97 05/20/18 12:51 57 L 97 05/20/18 12:46 52 L 97 05/20/18 12:41 58 L 98 05/20/18 12:36 55 L 98 05/20/18 12:32 52 L 18 115/72 05/20/18 12:31 58 L 99 05/20/18 12:26 58 L 98 05/20/18 12:21 57 L 98 05/20/18 12:16 55 L 98 05/20/18 12:11 63 98 05/20/18 12:06 57 L 98 05/20/18 12:01 59 L 98 05/20/18 12:00 18 05/20/18 11:56 58 L 97 05/20/18 11:51 60 98 05/20/18 11:46 59 L 99 05/20/18 11:41 74 99 05/20/18 11:36 85 98 05/20/18 11:35 115 H 114/64 05/20/18 11:31 57 L 99 05/20/18 11:26 53 L 99 05/20/18 11:21 56 L 99 05/20/18 11:19 51 L 105/70 05/20/18 11:16 68 98 05/20/18 11:11 56 L 98 05/20/18 11:06 57 L 114/72 98 05/20/18 11:01 60 97 05/20/18 10:56 58 L 98 05/20/18 10:51 36.7 C 60 18 98 05/20/18 10:49 56 L 115/77 05/20/18 10:46 72 96 05/20/18 10:41 62 99 05/20/18 10:36 63 98 05/20/18 10:34 64 110/73 05/20/18 10:31 69 98 05/20/18 10:30 18 05/20/18 10:26 58 L 98 05/20/18 10:21 65 97 05/20/18 10:19 60 107/62 05/20/18 10:16 66 97 05/20/18 10:15 18 Pulse Ox 05/21/18 09:15 05/21/18 08:00 05/21/18 07:47 05/21/18 07:45 98 05/21/18 07:00 05/21/18 06:24 05/21/18 05:29 05/21/18 04:30 05/21/18 03:30 05/21/18 03:04 05/21/18 01:52 05/21/18 00:40 05/20/18 23:45 05/20/18 23:31 05/20/18 23:30 05/20/18 23:27 05/20/18 23:25 05/20/18 23:20 05/20/18 23:17 05/20/18 23:15 05/20/18 23:10 05/20/18 23:07 05/20/18 23:05 05/20/18 23:00 05/20/18 22:57 05/20/18 22:55 05/20/18 22:50 05/20/18 22:47 05/20/18 22:45 05/20/18 22:40 05/20/18 22:37 05/20/18 22:35 05/20/18 22:30 05/20/18 22:27 05/20/18 22:25 05/20/18 22:20 05/20/18 22:17 05/20/18 22:15 05/20/18 22:10 05/20/18 22:06 05/20/18 22:05 05/20/18 22:00 05/20/18 21:57 05/20/18 21:55 05/20/18 21:50 05/20/18 21:47 05/20/18 21:45 05/20/18 21:42 05/20/18 21:40 05/20/18 21:37 05/20/18 21:36 05/20/18 21:35 05/20/18 21:30 05/20/18 21:27 05/20/18 20:21 05/20/18 20:19 05/20/18 20:17 05/20/18 20:16 05/20/18 20:11 05/20/18 20:08 05/20/18 20:06 05/20/18 20:01 05/20/18 20:00 05/20/18 19:56 05/20/18 19:51 05/20/18 19:50 05/20/18 19:46 05/20/18 19:41 05/20/18 19:36 05/20/18 19:34 05/20/18 19:31 05/20/18 19:26 05/20/18 19:21 05/20/18 19:20 05/20/18 19:16 05/20/18 19:15 05/20/18 19:13 05/20/18 19:11 05/20/18 19:07 05/20/18 19:06 05/20/18 19:01 05/20/18 18:56 05/20/18 18:51 05/20/18 18:46 05/20/18 18:41 05/20/18 18:36 05/20/18 18:31 05/20/18 18:30 05/20/18 18:26 05/20/18 18:25 05/20/18 18:21 05/20/18 18:16 05/20/18 18:15 05/20/18 18:11 05/20/18 18:10 05/20/18 18:06 05/20/18 18:01 05/20/18 18:00 05/20/18 17:56 05/20/18 17:52 05/20/18 17:51 05/20/18 17:46 05/20/18 17:41 05/20/18 17:39 05/20/18 17:36 05/20/18 17:31 05/20/18 17:26 05/20/18 17:21 05/20/18 17:16 05/20/18 17:15 05/20/18 17:11 05/20/18 17:06 05/20/18 17:01 05/20/18 16:56 05/20/18 16:51 05/20/18 16:46 05/20/18 16:41 05/20/18 16:36 05/20/18 16:34 05/20/18 16:33 05/20/18 16:32 05/20/18 16:31 05/20/18 16:26 05/20/18 16:21 05/20/18 16:16 05/20/18 16:11 05/20/18 16:06 05/20/18 16:05 05/20/18 16:01 05/20/18 15:56 05/20/18 15:51 05/20/18 15:46 05/20/18 15:41 05/20/18 15:36 05/20/18 15:31 05/20/18 15:26 05/20/18 15:21 05/20/18 15:16 05/20/18 15:11 05/20/18 15:06 05/20/18 15:01 05/20/18 14:58 05/20/18 14:56 05/20/18 14:51 05/20/18 14:46 05/20/18 14:41 05/20/18 14:36 05/20/18 14:31 05/20/18 14:26 05/20/18 14:21 05/20/18 14:16 05/20/18 14:11 05/20/18 14:06 05/20/18 14:01 05/20/18 14:00 05/20/18 13:56 05/20/18 13:51 05/20/18 13:46 05/20/18 13:41 05/20/18 13:36 05/20/18 13:31 05/20/18 13:30 05/20/18 13:26 05/20/18 13:25 05/20/18 13:21 05/20/18 13:16 05/20/18 13:11 05/20/18 13:06 05/20/18 13:01 05/20/18 12:56 05/20/18 12:51 05/20/18 12:46 05/20/18 12:41 05/20/18 12:36 05/20/18 12:32 05/20/18 12:31 05/20/18 12:26 05/20/18 12:21 05/20/18 12:16 05/20/18 12:11 05/20/18 12:06 05/20/18 12:01 05/20/18 12:00 05/20/18 11:56 05/20/18 11:51 05/20/18 11:46 05/20/18 11:41 05/20/18 11:36 05/20/18 11:35 05/20/18 11:31 05/20/18 11:26 05/20/18 11:21 05/20/18 11:19 05/20/18 11:16 05/20/18 11:11 05/20/18 11:06 05/20/18 11:01 05/20/18 10:56 05/20/18 10:51 05/20/18 10:49 05/20/18 10:46 05/20/18 10:41 05/20/18 10:36 05/20/18 10:34 05/20/18 10:31 05/20/18 10:30 05/20/18 10:26 05/20/18 10:21 05/20/18 10:19 05/20/18 10:16 05/20/18 10:15 Pain Intensity Bilateral Abdomen: Pain Intensity: 0 Notes Mental Status: alert / awake / arousable and participated in evaluation Nausea / Vomiting: adequately controlled Pain: adequately controlled Airway Patency, RR, SpO2: stable & adequate BP & HR: stable & adequate Hydration State: stable & adequate Neuraxial Anesthesia: was administered and sensory block resolved Anesthetic Complications: no major complications apparent
[2018-05-21] MEDS ORDERED: ONDANSETRON INJ 2 MG/ML 2 ML VIAL IV PRN (15:08)
[2018-05-21] MEDS ORDERED: PROMETHAZINE HCL 25 MG in SODIUM CHLORIDE 0.9% 50 ML IV PRN (15:08)
[2018-05-21] MEDS ORDERED: DC INTRASPINAL MORPHINE ONE (15:08)
[2018-05-21] MEDS ORDERED: ZOLPIDEM TARTRATE 5 MG TAB PO PRN (15:08)
[2018-05-21] MEDS ORDERED: DiphenhydrAMINE HCL 50 MG/ML VIAL IV PRN (15:08)
[2018-05-21] MEDS: IBUPROFEN 600 MG TAB PO PRN ×3 (16:07→23:55)
[2018-05-21] MEDS: OXYCODONE/ACETAMINOPHEN 5mg/325mg TAB PO PRN ×3 (16:08→23:55)
[2018-05-21] MEDS ORDERED: BISACODYL 5 MG TABEC PO SCH (20:00)
[2018-05-22 06:14] LABS: Hematocrit (blood only) 29.3 % (37-47); Hemoglobin 9.9 g/dL (12.0-16.0)
--- NOTE | 2018-05-22 06:59 | Obstetrical Progress Note ---
Date of Service <Arturo Whitehead DO - Last Filed: 05/22/18 06:59> May 22, 2018 Assessment & Plan <Arturo Whitehead DO - Last Filed: 05/22/18 06:59> (1) delivery delivered: 33 y/o , at 41.1 weeks after failure to progress s/p IOL, B+, GBS+ - continue routine post-op/ care - encourage , encourage ambulation, analgesics for pain control. (2) Post-dates : Subjective <Arturo Whitehead - Last Filed: 05/22/18 06:59> Ambulation: ambulating normally Voiding: no voiding problems Passing Gas:: Yes Diet Tolerance:: regular diet Lochia:: Small Feeding Type:: breast feeding Donis states she is doing well this morning, no acute events overnight. She denies fever, chills, shortness of breath, chest pain, nausea, vomiting. Physical Exam <Arturo Whitehead - Last Filed: 05/22/18 06:59> Vital Signs (Past 24 Hours) Last Vital Signs Temp 36.4 C L 05/21/18 23:55 Pulse 58 L 05/21/18 23:55 Resp 18 05/21/18 23:55 BP 105/67 05/21/18 23:55 Pulse Ox 98 05/21/18 23:55 Constitutional WD/WN, vitals as above cooperative and comfortable Eyes + anicteric sclerae and EOM intact bilaterally Neck normal visual inspection and trachea midline Respiratory normal respiratory effort, lungs clear to auscultation Cardiovascular RRR, no murmur, no edema Gastrointestinal (Abdomen) Percussion/Palpation: abdomen nontender uterine fundus is firm, non-tender, 3cm below umbilicus. Surgical incision wound is well healing, clean, dry, intact, without erythema or signs of infection. Musculoskeletal Head/Neck/Chest: normocephalic and head atraumatic Skin no rashes, warm and dry Neurologic moves all extremities and awake Psychiatric A+Ox3, euthymic affect Results & Data <Arturo Whitehead - Last Filed: 05/22/18 06:59> Laboratory Results Laboratory Results - last 24 hr 05/21/18 05/22/18 07:10 05:52 WBC 12.39 H RBC 3.25 L Hgb 10.7 L 9.9 L Hct 31.4 L 29.3 L MCV 96.6 MCH 32.9 MCHC 34.1 RDW Std Deviation 44.6 RDW Coeff of Naeem 12.8 Plt Count 156 MPV 10.3 Immature Gran % (Auto) 0.2 Neut % (Auto) 82.5 Lymph % (Auto) 12.4 [place] % (Auto) 4.8 Eos % (Auto) 0.0 Baso % (Auto) 0.1 Immature Gran # (Auto) 0.02 Neut # (Auto) 10.23 H Lymph # (Auto) 1.54 [place] # (Auto) 0.59 Eos # (Auto) 0.00 Baso # (Auto) 0.01 Medications Administered Docusate Sodium (Colace) 100 mg PO BID FREDA Stop: 06/20/18 08:59 Last Admin: 05/21/18 20:28 Dose: 100 mg Documented by: [id number] Admin: 05/21/18 08:58 Dose: 100 mg Documented by: [id number] Lactated Ringer's (Lr) 1,000 mls @ 125 mls/hr IV .Q8H FREDA Stop: 06/19/18 21:29 Last Infusion: 05/21/18 15:30 Dose: 0 mls/hr Documented by: [id number] Admin: 05/21/18 08:06 Dose: 125 mls/hr Documented by: [id number] Ibuprofen (Motrin) 600 mg PO Q4H PRN PRN Reason: Pain Stop: 06/19/18 21:19 Last Admin: 05/21/18 23:55 Dose: 600 mg Documented by: [id number] Admin: 05/21/18 20:28 Dose: 600 mg Documented by: [id number] Admin: 05/21/18 16:07 Dose: 600 mg Documented by: [id number] Oxycodone/Acetaminophen (Percocet 5mg/325mg) 1 - 2 tab PO Q4H PRN PRN Reason: Pain Stop: 06/04/18 15:07 Last Admin: 05/21/18 23:55 Dose: 1 tab Documented by: [id number] Admin: 05/21/18 20:28 Dose: 1 tab Documented by: [id number] Admin: 05/21/18 16:08 Dose: 1 tab Documented by: [id number] Prenat Multivit/[employer]ice/Iron/Folic Ac ( Vitamin) 1 tab PO QAM [facility] Stop: 06/20/18 08:59 Last Admin: 05/21/18 08:58 Dose: 1 tab Documented by: [id number] Simethicone (Mylicon) 80 mg PO QID [facility] Stop: 06/20/18 08:59 Last Admin: 05/21/18 20:28 Dose: 80 mg Documented by: [id number] Admin: 05/21/18 16:07 Dose: 80 mg Documented by: [id number] Admin: 05/21/18 13:21 Dose: 80 mg Documented by: [id number] Admin: 05/21/18 10:04 Dose: 80 mg Documented by: [id number] <Juliana Loyola MD, FACOG - Last Filed: 05/22/18 07:59> Co-Signing Physician Notes Resident Physician Supervision Note: I interviewed and examined the patient. Discussed with Dr. Whitehead and agree with findings and plan as documented in the note. Any exceptions or clarifications are listed here: Doing well. continue routine PP care. Documented By: Juliana Loyola MD, FACOG
[2018-05-22] MEDS: SIMETHICONE 80 MG CHEW PO SCH ×3 (08:33→21:07)
[2018-05-22] MEDS: DOCUSATE SODIUM 100 MG CAP PO SCH ×2 (08:33→21:04)
[2018-05-22] MEDS: OXYCODONE/ACETAMINOPHEN 5mg/325mg TAB PO PRN ×2 (08:33→13:11)
[2018-05-22] MEDS: PRENATAL VITAMIN 1 TAB PO SCH (08:33)
[2018-05-22] MEDS: IBUPROFEN 600 MG TAB PO PRN ×2 (08:33→13:10)
[2018-05-22] MEDS ORDERED: BISACODYL 10 MG SUPP PR PRN (21:21)
--- NOTE | 2018-05-23 07:02 | Obstetrical Progress Note ---
Date of Service <Arturo Whitehead - Last Filed: 05/23/18 07:16> May 23, 2018 Assessment & Plan <Arturo WhiteheadDO - Last Filed: 05/23/18 07:16> (1) delivery delivered: 33 y/o , at 41.1 weeks after failure to progress s/p IOL, B+, GBS+ - continue routine post-op/ care - encourage , encourage ambulation, analgesics for pain control. - Discharge instructions reviewed at bedside. (2) Post-dates : Subjective <Arturo WhiteheadDO - Last Filed: 05/23/18 07:16> Ambulation: ambulating normally Voiding: no voiding problems Passing Gas:: Yes Diet Tolerance:: regular diet Lochia:: Small Feeding Type:: breast feeding Donis states she is doing well this morning, no acute events overnight. She denies fever, chills, chest pain, shortness of breath, nausea, vomiting. She states she is ready for discharge home today. Physical Exam <Arturo WhiteheadDO - Last Filed: 05/23/18 07:16> Vital Signs (Past 24 Hours) Last Vital Signs Temp 36.6 C 05/22/18 23:44 Pulse 70 05/22/18 23:44 Resp 16 05/22/18 23:44 BP 112/70 05/22/18 23:44 Pulse Ox 98 05/22/18 23:44 Constitutional WD/WN, vitals as above cooperative and comfortable Eyes + anicteric sclerae and EOM intact bilaterally Neck normal visual inspection and trachea midline Respiratory normal respiratory effort, lungs clear to auscultation Cardiovascular RRR, no murmur, no edema Gastrointestinal (Abdomen) Percussion/Palpation: abdomen nontender Uterine fundus is non-tender, firm, 3cm inferior to umbilicus surgical wound is well healing, dry, intact, without erythema or signs of infection. Musculoskeletal Head/Neck/Chest: normocephalic and head atraumatic Skin no rashes, warm and dry Neurologic moves all extremities and awake Psychiatric A+Ox3, euthymic affect Results & Data <Arturo WhiteheadDO - Last Filed: 05/23/18 07:16> Medications Administered Docusate Sodium (Colace) 100 mg PO BID [facility] Stop: 06/20/18 08:59 Last Admin: 05/22/18 21:04 Dose: 100 mg Documented by: [id number] Admin: 05/22/18 08:33 Dose: 100 mg Documented by: [id number] Admin: 05/21/18 20:28 Dose: 100 mg Documented by: [id number] Admin: 05/21/18 08:58 Dose: 100 mg Documented by: [id number] Lactated Ringer's (Lr) 1,000 mls @ 125 mls/hr IV .Q8H [facility] Stop: 06/19/18 21:29 Last Infusion: 05/21/18 15:30 Dose: 0 mls/hr Documented by: [id number] Admin: 05/21/18 08:06 Dose: 125 mls/hr Documented by: [id number] Ibuprofen (Motrin) 600 mg PO Q4H PRN PRN Reason: Pain Stop: 06/19/18 21:19 Last Admin: 05/22/18 13:10 Dose: 600 mg Documented by: [id number] Admin: 05/22/18 08:33 Dose: 600 mg Documented by: [id number] Admin: 05/21/18 23:55 Dose: 600 mg Documented by: [id number] Admin: 05/21/18 20:28 Dose: 600 mg Documented by: [id number] Admin: 05/21/18 16:07 Dose: 600 mg Documented by: [id number] Oxycodone/Acetaminophen (Percocet 5mg/325mg) 1 - 2 tab PO Q4H PRN PRN Reason: Pain Stop: 06/04/18 15:07 Last Admin: 05/22/18 13:11 Dose: 1 tab Documented by: [id number] Admin: 05/22/18 08:33 Dose: 1 tab Documented by: [id number] Admin: 05/21/18 23:55 Dose: 1 tab Documented by: [id number] Admin: 05/21/18 20:28 Dose: 1 tab Documented by: [id number] Admin: 05/21/18 16:08 Dose: 1 tab Documented by: [id number] Prenat Multivit/[place]/Iron/Folic Ac ( Vitamin) 1 tab PO QAM [facility] Stop: 06/20/18 08:59 Last Admin: 05/22/18 08:33 Dose: 1 tab Documented by: [id number] Admin: 05/21/18 08:58 Dose: 1 tab Documented by: [id number] Simethicone (Mylicon) 80 mg PO QID [facility] Stop: 06/20/18 08:59 Last Admin: 05/22/18 21:07 Dose: 80 mg Documented by: [id number] Admin: 05/22/18 14:58 Dose: Not Given Documented by: [id number] Admin: 05/22/18 08:33 Dose: 80 mg Documented by: [id number] Admin: 05/21/18 20:28 Dose: 80 mg Documented by: [id number] Admin: 05/21/18 16:07 Dose: 80 mg Documented by: [id number] Admin: 05/21/18 13:21 Dose: 80 mg Documented by: [id number] Admin: 05/21/18 10:04 Dose: 80 mg Documented by: [id number] <Daphne Willams MD, FACOG - Last Filed: 05/23/18 07:33> Co-Signing Physician Notes Resident Physician Supervision Note: I interviewed and examined the patient. Discussed with Dr. Elodia Whitehead and agree with findings and plan as documented in the note. Any exceptions or clarifications are listed here: [None] Documented By: Daphne Willams MD, FACOG
[2018-05-23] MEDS: SIMETHICONE 80 MG CHEW PO SCH (08:25)
[2018-05-23] MEDS: DOCUSATE SODIUM 100 MG CAP PO SCH (08:25)
[2018-05-23] MEDS: IBUPROFEN 600 MG TAB PO PRN (08:25)
[2018-05-23] MEDS: OXYCODONE/ACETAMINOPHEN 5mg/325mg TAB PO PRN (08:25)
[2018-05-23] MEDS: PRENATAL VITAMIN 1 TAB PO SCH (08:25)
--- NOTE | 2018-05-26 19:37 | Discharge Summary ---
Date of Service May 26, 2018 pod #3 from c/s for ftp. Patient did well and was passing gas, minimal bleeding, no ext pain Admission HPI Per Admitting Provider Donis Mane is 33 y/o who presents for induction of labor at 41.4 weeks for post-dates . She is B+, GBS+, Rubella immune, VDRL unreactive, G/C-. Noted that she has not had prior exposure or vaccination to varicella. Otherwise, no acute concerns. Pain management plan is for epidural. Admission Exam (Per Admitting) Gastrointestinal (Abdomen) normal bowel sounds, soft, nontender, no hepatosplenomegaly Inspection/Auscultation: + abdominal surgical scar (well healing) Genitourinary normal external appearance Discharge Data Consultations 05/20/18 08:00 Consult Anesthesiology Stat Procedures Performed Operation Date: 05/20/18 19:55 Actual Procedures p Section in LD. Low transverse uterine incision for live male . - Lillian Singh MD, FACOG met criteria day 3. prescriptions given by team follow up in office Hospital Course (1) delivery delivered:
== END 2018-05-23 11:45 | disposition home or self-care (01) | DRG 788 ==
LOC: 4S1 07:47 → 4S2 23:55

== ENCOUNTER 2020-09-20 06:39 | Inpatient (IN) ==
--- NOTE | 2020-09-10 08:40 | Anesthesiology Consultation ---
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 No known Covid positive contacts or Covid related symptoms. No known Covid infection in the past 90 days. Pt is vaccinated for Covid. Preop Covid testing 09/15/20= will await results. History Surgery Operation Date: 09/20/20 07:30 Proposed Procedures p Section in LD - Lillian Singh MD, FACOG Height/Weight Height: 5 ft 8 in Weight: 68.039 kg Allergies Allergy/AdvReac Type Severity Reaction Status Date / Time No Known Allergies Allergy Verified 09/09/20 16:05 Medications Home Medications Medication Instructions Recorded Confirmed Last Taken prenat.vits,mariya,qbh-zwur-iognt 1 tab PO DAILY 02/26/20 09/09/20 Unknown Past Medical History Medical History GERD (gastroesophageal reflux disease) Occasional PONV (postoperative nausea and vomiting) Past Family History Family History Other No history of previous surgery No known health problems Past Surgical History Surgical History Hx of section Social History Smoking Status: Never smoker Do You Dip or Chew Tobacco: No Hx Alcohol Use: No Hx Substance Use: No substance use type: does not use
[~2020-09-20 06:39] MED LIST: CITRIC ACID/SODIUM CITRATE 15 ML UDC PO SCH
[2020-09-20] MEDS ORDERED: LACTATED RINGER'S 1,000 ML IV SCH ×2 (06:45→12:28)
--- NOTE | 2020-09-20 06:47 | History & Physical Report ---
Date of Service September 20, 2020 Assessment & Plan (1) Anti-E isoimmunization affecting , antepartum: Plan: Repeat section. The patient was counseled to the nature of the procedure including alternatives such as labor. Risks were discussed including bleeding infection injury to bowel bladder ureter vessels and even baby. The risks of internal organ injury were discussed as being higher with prior sections. Deep Vein Thrombosis, pulmonary embolus and breakdown of the incision discussed. Deep vein thrombosis pulmonary embolus hernia and failure of the incision to heal were discussed Patient verbalized understanding of this and was given ample time to ask questions 37 weeks as anti-E issues Admission and Anticipated Discharge Date Admission Date: September 20, 2020 History of Present Illness Primary Care Provider: Tez Mendoza c/s at 37 weeks for anti-E issues Allergies Allergy/AdvReac Type Severity Reaction Status Date / Time No Known Allergies Allergy Verified 09/17/20 09:11 Home Medications Medication Instructions Recorded Confirmed Type prenat.vits,mariya,vur-[id number]-[id number] 1 tab PO DAILY 02/26/20 09/17/20 History Patient History Medical History GERD (gastroesophageal reflux disease) Occasional PONV (postoperative nausea and vomiting) Surgical History Hx of section Family History Other No history of previous surgery No known health problems Social History (Updated 02/26/20 @ 11:44 by Judith Esquivel RN) Smoking Status: Never smoker Second Hand Exposure: No; Do You Dip or Chew Tobacco: No; Tobacco Cessation Education Requested by Patient: No Hx Alcohol Use: No Hx Substance Use: No Preferred Language: Mandarin Portuguese Communication Ability: Effective Visual Impairment: No Limitations Traffic And Transport Planner Required: No Beliefs That Will Affect Care: Cultural Cultural Beliefs: warm water marital status: marital status details: scot [phone] Current Living Situation: Spouse, Parent and Family Current Living Situation Comment: lives with spouse, son current occupational status: unemployed Other Information That Helps Us Care for You: No Feels Safe at Home: Yes Safety Concerns: Feels Safe At This Time Assistive Devices: None Review of Systems as per Subjective / HPI Physical Exam Constitutional: WD/WN, vitals as above well developed and well nourished Respiratory: normal respiratory effort, lungs clear to auscultation normal respiratory effort Cardiovascular: RRR, no murmur, no edema Gastrointestinal (Abdomen): normal bowel sounds, soft, nontender, no hepatosplenomegaly Coding Level of Care Code None Diagnoses Anti-E isoimmunization affecting , antepartum O36.0990
[2020-09-20] MEDS ORDERED: ceFAZolin 2000MG 2,000 MG/15 ML SYR IV SCH (06:50)
[2020-09-20 08:03] LABS: Basophils # (auto) 0.01 K/uL (0-0.2); Basophils % (auto) 0.2 %; Eosinophils # (auto) 0.04 K/uL (0-0.5); Eosinophils % (auto) 0.7 %; Hematocrit (blood only) 38.3 % (37-47); Immature Granulocytes # (auto) 0.06 K/uL (0.00-0.02); Immature Granulocytes % (auto) 1.1 %; Lymphocytes % (auto) 28.6 %; Mean Corpuscular Hgb Conc 33.9 g/dL (32-36); Mean Corpuscular Volume 100.3 fL (80-100); Mean Platelet Volume 10.2 fL (7.4-10.4); Monocytes # (auto) 0.38 K/uL (0.11-0.59); Monocytes % (auto) 6.8 %; Neutrophils % (auto) 62.6 %; Platelet Count 182 K/uL (130-400); RDW Coefficient of Variation 12.6 % (11.5-14.5); RDW Standard Deviation 45.7 fL (36.4-46.3); Red Blood Count 3.82 M/uL (4.2-5.4); White Blood Count 5.59 K/uL (4.8-10.8)
[2020-09-20] MEDS ORDERED: KETOROLAC 30 MG/ML VIAL ONE (09:05)
[2020-09-20] MEDS ORDERED: OXYTOCIN 10 UNITS/ML VIAL ONE (09:05)
[2020-09-20] MEDS ORDERED: ONDANSETRON INJ 2 MG/ML 2 ML VIAL ONE (09:05)
[2020-09-20] MEDS ORDERED: PHENYLEPHRINE 100MCG/ML 5ML SYR ONE ×2 (09:05→10:32)
[2020-09-20] MEDS ORDERED: NALBUPHINE HCL INJ 10 MG/ML AMP IV PRN (09:10)
[2020-09-20] MEDS ORDERED: diphenhydrAMINE 50 MG/ML VIAL IV PRN (09:10)
[2020-09-20] MEDS ORDERED: NALOXONE HCL 0.4 MG/1 ML VIAL/CARP IV PRN (09:10)
[2020-09-20] MEDS ORDERED: MoRPHine SULFATE 2 MG/ML CARP IV PRN (09:10)
[2020-09-20] MEDS ORDERED: NALOXONE HCL 0.08 MG in SYRINGE 1.8 ML IV PRN (09:10)
[2020-09-20] MEDS ORDERED: ePHEDrine sulfate 50 MG/ML AMP IV PRN (09:10)
[2020-09-20] MEDS ORDERED: NALOXONE HCL 1 MG in SODIUM CHLORIDE 0.9% 1000ML 1,000 ML IV PRN (09:10)
[2020-09-20] MEDS ORDERED: PROMETHAZINE HCL 12.5 MG in SODIUM CHLORIDE 0.9% 50 ML IV PRN (09:10)
[2020-09-20] MEDS ORDERED: ONDANSETRON INJ 2 MG/ML 2 ML VIAL IV PRN (09:10)
[2020-09-20] MEDS ORDERED: MoRPHine SULFATE PF 1 MG/ML 10 ML AMP/VIAL INT SPINAL ONE (09:10)
[2020-09-20] MEDS ORDERED: LACTATED RINGER'S 500 ML IV PRN (09:10)
[2020-09-20] MEDS ORDERED: KETOROLAC 30 MG/ML VIAL IV PRN (09:10)
[2020-09-20] MEDS ORDERED: DC INTRASPINAL MORPHINE SCH (09:15)
[2020-09-20] MEDS ORDERED: NO NARCOTICS OR SEDATIVES SCH (09:15)
[2020-09-20] MEDS ORDERED: SODIUM CHLORIDE 0.9% 1000ML 1,000 ML IV SCH (09:15)
[2020-09-20] MEDS ORDERED: fentaNYL citrate 100 MCG/2 ML VIAL ONE (09:47)
[2020-09-20] MEDS ORDERED: MoRPHine SULFATE PF 1 MG/ML 10 ML AMP/VIAL ONE (09:47)
--- NOTE | 2020-09-20 10:55 | Operative Report ---
PG Post Operative Report Pre & Post Diagnosis Operation Date: 09/20/20 08:50 Pre-Op Diagnosis: Intrauterine . Desires repeat section, anit-E isoimmunization. Post-Op Diagnosis: Intrauterine . Desires repeat section, anit-E isoimmunization. Living male child at 1020 I identified the patient and participated in the time-out.: Yes Procedure Operation Date: 09/20/20 08:50 Actual Procedures p Section in LD (Delivery of Baby Through Abdominal Incision) living male child at 1020(Bilateral) - Lillian Singh MD, FACOG Surgeon Lillian Singh MD, FACOG Manual Equipment Mechanic Dr. Shelton Estimated Blood Loss 400 Findings Consistent with Post-Op Diagnosis Specimens cord blood, placenta Description of Procedure Regional anesthetic was given by anesthesia patient had a Aragon catheter inserted by nursing patient was prepped and draped in supine position with a leftward tilt preoperative antibiotics were given timeout performed Pickups with teeth were used to test the skin site and it was found adequate for incision scalpel used to make a Pfannenstiel incision cutting down through subcutaneous fat through the fascia fascia was then dissected laterally with the curved Abrams's fascia was released superiorly and inferiorly from the rectus muscles with the curved Abrams scissors, rectus muscle split peritoneal cavity entered in a superior location. Opening enlarged to allow exposure bladder retractor placed Metzenbaums used to dissect away the bladder flap low segment transverse incision made on the uterus with scalpel entry was done bluntly with the offset machine operator's finger hysterotomy incision extended with the offset machine operator's finger in the usual fashion baby was delivered then by flexion of the head and pressure from the pastry assistant on the abdomen mouth and then nares were suctioned baby was then delivered fully without difficulty without excessive force live vigorous cord clamped and cut cord gases obtained cord blood obtained placenta removed manually within ensured all placenta removed with a moist lap sponge uterus exteriorized IV Pitocin had been started by anesthesia and uterine tone improved. The uterus was closed in 2 layers first layer and 0 Monocryl running locked second layer 0 Monocryl nonlocked after generous irrigation and suction of the cul-de-sac and bladder flap regions hemostasis was excellent uterus was placed back in the peritoneal cavity and hemostasis was excellent rectus muscles were inspected and found to be dry. small fascial defect repaired in the superior midline repaired with 0 vicryl figure of 8 fascia closed with 0 Vicryl subcutaneous fat closed with 3-0 Vicryl prior to this subcutaneous fat was irrigated skin closed with 4-0 subcuticular Monocryl incision Steri-Stripped urine was clear at the end of the procedure I attest to the content of the Intraoperative Record and any orders documented therein. Any exceptions are noted below. Procedure Pre-op/Post-op diagnoses: Pre-Op/Post-Op Diagnoses Operation Date: 09/20/20 08:50 Pre-Op Diagnosis: Intrauterine . Desires repeat section, anit-E isoimmunization. Post-Op Diagnosis: Intrauterine . Desires repeat section, anit-E isoimmunization. Living male child at 1020 Procedure: Procedures Operation Date: 09/20/20 08:50 Actual Procedure Side Surgeon p Section in LD (Delivery of Baby Through Abdominal Incision) living male child at 1020 Bilateral Lillian Singh MD, FACOG Estimated blood loss (mL): 400
--- NOTE | 2020-09-20 11:22 | Anesthesiology Progress Note ---
Date of Service September 20, 2020 Anesthesia Post Procedure Vital Signs Vital Signs: Temp Pulse Resp BP Pulse Ox 09/20/20 11:19 57 L 100 09/20/20 11:18 59 L 113/63 09/20/20 11:14 58 L 100 09/20/20 11:09 61 100 09/20/20 11:07 58 L 105/58 L 09/20/20 11:04 59 L 100 09/20/20 06:46 69 105/62 09/20/20 06:45 36.7 C 18 Transfer of Care Handoff Completed per policy Notes Mental Status: alert / awake / arousable and participated in evaluation Patient Amnestic to Procedure: Yes Nausea / Vomiting: adequately controlled Pain: adequately controlled Airway Patency, RR, SpO2: stable & adequate BP & HR: stable & adequate Hydration State: stable & adequate Anesthetic Complications: no major complications apparent and Pt Satisfied with anesthetic care
[2020-09-20] MEDS ORDERED: DEXAMETHASONE SOD INJ 4 MG/ML VIAL ONE (11:23)
[2020-09-20] MEDS ORDERED: HYDROCORTISONE ACETATE 25 MG SUPP PR PRN (12:28)
[2020-09-20] MEDS ORDERED: SUPERCREAM 0.870% 15 GM JAR EXT PRN (12:28)
[2020-09-20] MEDS ORDERED: BENZOCAINE 20% AER SPR 82.5 GM CAN EXT PRN (12:28)
[2020-09-20] MEDS ORDERED: MAGNESIUM HYDROXIDE SUSP 30 ML UDC PO PRN (12:28)
[2020-09-20] MEDS ORDERED: DIPHTHERIA/TETANUS/PERTUSSIS 0.5 ML SYR/VIAL IM ONE (12:28)
[2020-09-20] MEDS ORDERED: SENNA 8.6 MG TAB PO PRN (12:28)
[2020-09-20] MEDS: OXYTOCIN 20 UNITS in LACTATED RINGER'S 1,000 ML IV SCH ×2 (13:00→21:19)
[2020-09-20] MEDS: SIMETHICONE 80 MG CHEW PO SCH ×3 (16:24→21:13)
[2020-09-20] MEDS: DOCUSATE SODIUM 100 MG CAP PO SCH (21:13)
[2020-09-21] MEDS ORDERED: diphenhydrAMINE Capsule 25 MG CAP PO PRN (03:11)
[2020-09-21] MEDS ORDERED: KETOROLAC 30 MG/ML VIAL IV PRN (03:11)
[2020-09-21] MEDS ORDERED: MEPERIDINE HCL 50 MG/ML CARP IV PRN (03:11)
[2020-09-21] MEDS ORDERED: ONDANSETRON INJ 2 MG/ML 2 ML VIAL IV PRN (03:11)
[2020-09-21] MEDS ORDERED: diphenhydrAMINE 50 MG/ML VIAL IV PRN (03:11)
[2020-09-21] MEDS ORDERED: PROMETHAZINE HCL 25 MG in SODIUM CHLORIDE 0.9% 50 ML IV PRN (03:11)
[2020-09-21] MEDS: oxyCODONE/ACETAMINOPHEN 5mg/325mg TAB PO PRN ×4 (05:10→18:38)
[2020-09-21] MEDS: IBUPROFEN 600 MG TAB PO PRN ×4 (05:11→18:39)
[2020-09-21] MEDS ORDERED: CITRIC ACID/SODIUM CITRATE 15 ML UDC PO SCH (06:00)
[2020-09-21 06:16] LABS: Basophils # (auto) 0.01 K/uL (0-0.2); Basophils % (auto) 0.1 %; Eosinophils # (auto) 0.03 K/uL (0-0.5); Eosinophils % (auto) 0.4 %; Hematocrit (blood only) 31.3 % (37-47); Hemoglobin 10.7 g/dL (12.0-16.0); Immature Granulocytes # (auto) 0.04 K/uL (0.00-0.02); Immature Granulocytes % (auto) 0.5 %; Lymphocytes # (auto) 1.82 K/uL (1.2-3.4); Lymphocytes % (auto) 24.7 %; Mean Corpuscular Hemoglobin 34.2 pg (25-34); Mean Corpuscular Hgb Conc 34.2 g/dL (32-36); Monocytes % (auto) 8.1 %; Neutrophils # (auto) 4.87 K/uL (1.4-6.5); Neutrophils % (auto) 66.2 %; Platelet Count 155 K/uL (130-400); RDW Coefficient of Variation 12.7 % (11.5-14.5); RDW Standard Deviation 46.3 fL (36.4-46.3); Red Blood Count 3.13 M/uL (4.2-5.4); White Blood Count 7.37 K/uL (4.8-10.8)
--- NOTE | 2020-09-21 07:07 | Obstetrical Progress Note ---
Date of Service <Rowena Shelton DO - Last Filed: 09/21/20 07:07> September 21, 2020 Assessment & Plan <Rowena Shelton DO - Last Filed: 09/21/20 07:07> (1) Encounter for care and examination after delivery: 35 yo post op day1 from c/s with hx anti-E isoimmunization and prior c/s, doing well. -Continue routine post care. -vital signs reviewed and WNL (Tmax 36.8) -Blood Type B+, GBS+ treated with ancef, Rubella immune -Encourage ambulation, monitor and control pain with Motrin, tylenol PRN, resume regular diet, monitor lochia -encourage breast feeding -hemoglobin 10.7 -will remove bandage after 24hr since procedure Day #:: 1 <Lillian Singh MD, FACOG - Last Filed: 09/21/20 07:37> (1) Encounter for care and examination after delivery: Subjective <Rowena Shelton DO - Last Filed: 09/21/20 07:07> Ambulation: limited ambulation (has not tried walking yet) Voiding: caballero catheter in place (recently removed she has not tried voiding yet) Passing Gas:: No Diet Tolerance:: regular diet Lochia:: Moderate Feeding Type:: breast feeding Current Pain Level(1-10): 1 (pain well controlled on medication) Review of Systems Denies fever, chills, sweats Denies shortness of breath, difficulty breathing, chest pain, palpitations, chest pressure. Denies breast pain. Denies dysuria. Denies headache or changes in vision. Physical Exam <DO Rosita Moore Last Filed: 09/21/20 07:07> General: Alert, oriented. No acute distress. Cardiac: Regular rate and rhythm, no murmurs/rubs/gallops. Respiratory: Clear to auscultation bilaterally a/p, no wheezes/rales/rhonchi. No increased work of breathing. Symmetrical chest rise. No respiratory distress. Abdomen: Soft, nontender, nondistended. Bowel sounds present. Uterus: Uterine fundus firm, palpable 1 cm below umbilicus. Surgical scar bandaged Lower Extremities: No lower extremity edema or swelling. No deep calf pain. Peng's negative bilaterally. Results & Data ([facility]) <Rowena Shelton DO - Last Filed: 09/21/20 07:07> Vital Signs (Past 12 Hours) Vital Signs Temp Pulse Resp BP Pulse Ox 09/21/20 03:35 36.8 C 60 16 95/57 L 98 09/21/20 02:07 16 96 09/21/20 01:09 16 97 09/21/20 00:10 16 98 09/20/20 23:00 36.8 C 54 L 16 92/51 L 97 09/20/20 22:20 16 98 09/20/20 21:05 16 99 09/20/20 20:40 16 96 09/20/20 19:30 36.5 C 66 16 98/49 L 97 Laboratory Results 09/21/20 09/20/20 09/20/20 Range/Units 05:42 06:49 06:49 WBC 7.37 5.59 (4.8-10.8) K/uL RBC 3.13 L 3.82 L (4.2-5.4) M/uL Hgb 10.7 L 13.0 (12.0-16.0) g/dL Hct 31.3 L 38.3 (37-47) % MCV 100.0 100.3 H (80-100) fL MCH 34.2 H 34.0 (25-34) pg MCHC 34.2 33.9 (32-36) g/dL RDW Std Deviation 46.3 45.7 (36.4-46.3) fL RDW Coeff of Naeem 12.7 12.6 (11.5-14.5) % Plt Count 155 182 (130-400) K/uL MPV 10.0 10.2 (7.4-10.4) fL Immature Gran % (Auto) 0.5 1.1 % Neut % (Auto) 66.2 62.6 % Lymph % (Auto) 24.7 28.6 % Ransom % (Auto) 8.1 6.8 % Eos % (Auto) 0.4 0.7 % Baso % (Auto) 0.1 0.2 % Neut # (Auto) 4.87 3.50 (1.4-6.5) K/uL Lymph # (Auto) 1.82 1.60 (1.2-3.4) K/uL Ransom # (Auto) 0.60 H 0.38 (0.11-0.59) K/uL Eos # (Auto) 0.03 0.04 (0-0.5) K/uL Baso # (Auto) 0.01 0.01 (0-0.2) K/uL Immature Gran # (Auto) 0.04 H 0.06 H (0.00-0.02) K/uL Blood Type B Positive Antibody Screen POSITIVE A Antibody Identification Anti-E Antibody ID Comment Crossmatch See Detail Medications Administered Current Inpatient Medications Benzocaine (Benzocaine 20% Aer Spr 82.5 Gm Can) 1 appln EXT UD PRN PRN Reason: use on skin as needed Stop: 10/20/20 12:27 Bisacodyl (Bisacodyl 5 Mg Tabec) 5 mg PO 1999 [facility] Stop: 09/21/20 20:01 Bisacodyl (Bisacodyl 10 Mg Supp) 10 mg NE PRN PRN PRN Reason: Constipation Stop: 10/22/20 11:38 Cocaine HCl (Supercream 0.870% 15 Gm Jar) 1 gm EXT UD PRN PRN Reason: hemmorrhoidal inflammation Stop: 10/04/20 12:27 Diphenhydramine HCl (Diphenhydramine Capsule 25 Mg Cap) 25 mg PO QID PRN PRN Reason: Itching Stop: 10/21/20 03:10 Diphenhydramine HCl (Diphenhydramine 50 Mg/Ml Vial) 25 mg IV QID PRN PRN Reason: Itching Stop: 10/21/20 03:10 Docusate Sodium (Docusate Sodium 100 Mg Cap) 100 mg PO DAILY@ [facility] Stop: 10/20/20 20:59 Last Admin: 09/20/20 21:13 Dose: 100 mg Documented by: Ferrous Sulfate (Ferrous Sulfate 325 Mg Tab) 325 mg PO DAILY@ [facility] Stop: 10/21/20 07:59 Hydrocortisone (Hydrocortisone Acetate 25 Mg Supp) 25 mg NE BID PRN PRN Reason: Hemorrhoids Stop: 10/20/20 12:27 Lactated Ringer's (Lr) 1,000 mls @ 125 mls/hr IV .Q8H [facility] Stop: 10/20/20 12:27 Last Admin: 09/20/20 16:24 Dose: Not Given Documented by: Promethazine HCl 25 mg/ Sodium (Chloride) 51 mls @ 204 mls/hr IV Q4H PRN PRN Reason: Nausea And Vomiting Stop: 10/21/20 03:10 Ibuprofen (Ibuprofen 600 Mg Tab) 600 mg PO Q4H PRN PRN Reason: Pain Stop: 10/21/20 03:10 Last Admin: 09/21/20 05:11 Dose: 600 mg Documented by: Ketorolac Tromethamine (Ketorolac 30 Mg/Ml Vial) 30 mg IV Q6H PRN PRN Reason: Pain Stop: 09/26/20 03:10 Magnesium Hydroxide (Magnesium Hydroxide Susp 30 Ml Udc) 30 ml PO HS PRN PRN Reason: Constipation Stop: 10/20/20 12:27 Meperidine HCl (Meperidine Hcl 50 Mg/Ml Carp) 50 - 75 mg IV Q4H PRN PRN Reason: Pain Stop: 10/05/20 03:10 Ondansetron HCl (Ondansetron Inj 2 Mg/Ml 2 Ml Vial) 4 mg IV Q4H PRN PRN Reason: Nausea And Vomiting Stop: 10/21/20 03:10 Oxycodone/Acetaminophen (Oxycodone/Acetaminophen 5mg/325mg Tab) 1 - 2 tab PO Q4H PRN PRN Reason: Pain Stop: 10/05/20 03:10 Last Admin: 09/21/20 05:10 Dose: 1 tab Documented by: Prenat Multivit/[place]/Iron/Folic Ac ( Vitamin 1 Tab) 1 tab PO DAILY@08 [facility] Stop: 10/21/20 07:59 Sennosides (Senna 8.6 Mg Tab) 17.2 mg PO HS PRN PRN Reason: Constipation Stop: 10/20/20 12:27 Simethicone (Simethicone 80 Mg Chew) 80 mg PO DAILY@08,,, [facility] Stop: 10/20/20 12:59 Last Admin: 09/20/20 21:13 Dose: 80 mg Documented by: <Lillian Singh MD, FACOG - Last Filed: 09/21/20 07:37> Co-Signing Physician Notes Resident Physician Supervision Note: I was present with Dr. Shelton during the history and exam. I discussed the case with the resident and agree with the findings and plan as documented in the note. Any exceptions or clarifications are listed here: [None] Documented By: Lillian Singh MD, FACOG Resident Activity Tracking <Rowena Shelton DO - Last Filed: 09/21/20 07:07> Resident Involvement: Resident Care Provided Care Provided: OB Delivery
[2020-09-21] MEDS: FERROUS SULFATE 325 MG TAB PO SCH (08:05)
[2020-09-21] MEDS: PRENATAL VITAMIN 1 TAB PO SCH (08:05)
[2020-09-21] MEDS: DOCUSATE SODIUM 100 MG CAP PO SCH ×2 (08:05→20:49)
[2020-09-21] MEDS: SIMETHICONE 80 MG CHEW PO SCH ×4 (08:05→20:49)
[2020-09-21] MEDS ORDERED: NON-FORMULARY MEDICATION (Prenat.Vits,Cal,Min-Iron-Folic tablet) PO SCH (09:00)
[2020-09-21] MEDS ORDERED: bisacodyL 5 MG TABEC PO SCH (20:00)
[2020-09-22] MEDS: IBUPROFEN 600 MG TAB PO PRN ×4 (01:48→20:50)
[2020-09-22] MEDS: oxyCODONE/ACETAMINOPHEN 5mg/325mg TAB PO PRN ×4 (01:48→20:50)
--- NOTE | 2020-09-22 06:38 | Obstetrical Progress Note ---
Date of Service <Rowena NikitaDO - Last Filed: 09/22/20 06:38> September 22, 2020 Assessment & Plan <Rowena Shelton DO - Last Filed: 09/22/20 06:38> (1) Encounter for care and examination after delivery: 35 yo post op day2 from c/s with hx anti-E isoimmunization and prior c/s, doing well. -Continue routine post care. -vital signs reviewed and WNL (Tmax 36.8) -Blood Type B+, GBS+ treated with ancef, Rubella immune -Encourage ambulation, monitor and control pain with Motrin, tylenol PRN, resume regular diet, monitor lochia -encourage breast feeding -hemoglobin 10.7 (09/21) Day #:: 2 <Chayo Lindo MD - Last Filed: 09/22/20 07:00> (1) Encounter for care and examination after delivery: Subjective <Rowena Shelton DO - Last Filed: 09/22/20 06:38> Ambulation: ambulating normally Voiding: no voiding problems Passing Gas:: Yes Diet Tolerance:: regular diet Lochia:: Moderate Feeding Type:: breast feeding Current Pain Level(1-10): 2 (pain well controlled on medication) Review of Systems Denies fever, chills, sweats Denies shortness of breath, difficulty breathing, chest pain, palpitations, chest pressure. Denies breast pain. Denies dysuria. Denies headache or changes in vision. Physical Exam <DO Rosita Moore Last Filed: 09/22/20 06:38> General: Alert, oriented. No acute distress. Cardiac: Regular rate and rhythm, no murmurs/rubs/gallops. Respiratory: Clear to auscultation bilaterally a/p, no wheezes/rales/rhonchi. No increased work of breathing. Symmetrical chest rise. No respiratory distress. Abdomen: Soft, nontender, nondistended. Bowel sounds present. Uterus: Uterine fundus firm, palpable 1 cm below umbilicus. Surgical scar clean and dry Lower Extremities: No lower extremity edema or swelling. No deep calf pain. Peng's negative bilaterally. Results & Data ([facility]) <Rowena Shelton DO - Last Filed: 09/22/20 06:38> Vital Signs (Past 12 Hours) Vital Signs Temp Pulse Resp BP Pulse Ox 09/21/20 23:15 36.4 C L 58 L 16 94/55 L 99 09/21/20 19:45 36.7 C 57 L 16 96/62 L Laboratory Results 09/22/20 Range/Units 06:29 Hgb Pending Hct Pending Medications Administered Current Inpatient Medications Benzocaine (Benzocaine 20% Aer Spr 82.5 Gm Can) 1 appln EXT UD PRN PRN Reason: use on skin as needed Stop: 10/20/20 12:27 Bisacodyl (Bisacodyl 10 Mg Supp) 10 mg NE PRN PRN PRN Reason: Constipation Stop: 10/22/20 11:38 Cocaine HCl (Supercream 0.870% 15 Gm Jar) 1 gm EXT UD PRN PRN Reason: hemmorrhoidal inflammation Stop: 10/04/20 12:27 Diphenhydramine HCl (Diphenhydramine Capsule 25 Mg Cap) 25 mg PO QID PRN PRN Reason: Itching Stop: 10/21/20 03:10 Diphenhydramine HCl (Diphenhydramine 50 Mg/Ml Vial) 25 mg IV QID PRN PRN Reason: Itching Stop: 10/21/20 03:10 Docusate Sodium (Docusate Sodium 100 Mg Cap) 100 mg PO DAILY@ [facility] Stop: 10/20/20 20:59 Last Admin: 09/21/20 20:49 Dose: 100 mg Documented by: Ferrous Sulfate (Ferrous Sulfate 325 Mg Tab) 325 mg PO DAILY@ [facility] Stop: 10/21/20 07:59 Last Admin: 09/21/20 08:05 Dose: 325 mg Documented by: Hydrocortisone (Hydrocortisone Acetate 25 Mg Supp) 25 mg NE BID PRN PRN Reason: Hemorrhoids Stop: 10/20/20 12:27 Lactated Ringer's (Lr) 1,000 mls @ 125 mls/hr IV .Q8H [facility] Stop: 10/20/20 12:27 Last Admin: 09/20/20 16:24 Dose: Not Given Documented by: Promethazine HCl 25 mg/ Sodium (Chloride) 51 mls @ 204 mls/hr IV Q4H PRN PRN Reason: Nausea And Vomiting Stop: 10/21/20 03:10 Ibuprofen (Ibuprofen 600 Mg Tab) 600 mg PO Q4H PRN PRN Reason: Pain Stop: 10/21/20 03:10 Last Admin: 09/22/20 01:48 Dose: 600 mg Documented by: Ketorolac Tromethamine (Ketorolac 30 Mg/Ml Vial) 30 mg IV Q6H PRN PRN Reason: Pain Stop: 09/26/20 03:10 Magnesium Hydroxide (Magnesium Hydroxide Susp 30 Ml Udc) 30 ml PO HS PRN PRN Reason: Constipation Stop: 10/20/20 12:27 Meperidine HCl (Meperidine Hcl 50 Mg/Ml Carp) 50 - 75 mg IV Q4H PRN PRN Reason: Pain Stop: 10/05/20 03:10 Ondansetron HCl (Ondansetron Inj 2 Mg/Ml 2 Ml Vial) 4 mg IV Q4H PRN PRN Reason: Nausea And Vomiting Stop: 10/21/20 03:10 Oxycodone/Acetaminophen (Oxycodone/Acetaminophen 5mg/325mg Tab) 1 - 2 tab PO Q4H PRN PRN Reason: Pain Stop: 10/05/20 03:10 Last Admin: 09/22/20 01:48 Dose: 1 tab Documented by: Prenat Multivit/[employer]arm[employer]/Iron/Folic Ac ( Vitamin 1 Tab) 1 tab PO DAILY@08 [facility] Stop: 10/21/20 07:59 Last Admin: 09/21/20 08:05 Dose: 1 tab Documented by: Sennosides (Senna 8.6 Mg Tab) 17.2 mg PO HS PRN PRN Reason: Constipation Stop: 10/20/20 12:27 Simethicone (Simethicone 80 Mg Chew) 80 mg PO DAILY@08,,, [facility] Stop: 10/20/20 12:59 Last Admin: 09/21/20 20:49 Dose: 80 mg Documented by: <Chayo Lindo MD - Last Filed: 09/22/20 07:00> Co-Signing Physician Notes Resident Physician Supervision Note: I interviewed and examined the patient. Discussed with Dr. Shelton and agree with findings and plan as documented in the note. Any exceptions or clarifications are listed here: Continue routine pp care, plan for d/c tomorrow Documented By: Chayo Lindo MD Resident Activity Tracking <Rowena Shelton, DO - Last Filed: 09/22/20 06:38> Resident Involvement: Resident Care Provided Care Provided: OB Delivery
[2020-09-22 06:40] LABS: Hematocrit (blood only) 32.3 % (37-47); Hemoglobin 10.9 g/dL (12.0-16.0)
[2020-09-22] MEDS: DOCUSATE SODIUM 100 MG CAP PO SCH ×2 (08:14→20:50)
[2020-09-22] MEDS: PRENATAL VITAMIN 1 TAB PO SCH (08:14)
[2020-09-22] MEDS: FERROUS SULFATE 325 MG TAB PO SCH (08:15)
[2020-09-22] MEDS: SIMETHICONE 80 MG CHEW PO SCH ×4 (08:18→20:50)
[2020-09-22] MEDS ORDERED: bisacodyL 10 MG SUPP PR PRN (11:39)
--- NOTE | 2020-09-23 05:56 | Obstetrical Progress Note ---
Date of Service September 23, 2020 Assessment & Plan (1) Encounter for care and examination after delivery: stable for d/c home, instructions reviewed. script sent after ok on pa pdmp. reassured about bm. f/u 6wk pp check. Subjective Ambulation: ambulating normally Voiding: no voiding problems Passing Gas:: Yes Diet Tolerance:: regular diet Lochia:: Small Feeding Type:: breast feeding denies pain issues. no bm yet Review of Systems per hpi Constitutional: + as per Subjective / HPI Physical Exam Constitutional WD/WN, vitals as above Respiratory normal respiratory effort, lungs clear to auscultation Cardiovascular Rate/Rhythm: regular rate and regular rhythm Gastrointestinal (Abdomen) Inspection/Auscultation: abdomen normal to inspection and + abdominal surgical incision (c/d/i with steris) Percussion/Palpation: abdomen soft Fundus firm 1-2cm down Musculoskeletal nt calves no edema Neurologic grossly normal Psychiatric A+Ox3, euthymic affect Results & Data ([facility]) Vital Signs (Past 12 Hours) Vital Signs Temp Pulse Resp BP Pulse Ox 09/22/20 23:40 97.7 F 58 L 18 94/58 L 99
--- NOTE | 2020-09-23 07:08 | Obstetrical Progress Note ---
Date of Service September 23, 2020 Assessment & Plan (1) Encounter for care and examination after delivery: 35 yo post op day2 from c/s with hx anti-E isoimmunization and prior c/s, doing well. -Continue routine post care. -vital signs reviewed and WNL (Tmax 36.8) -Blood Type B+, GBS+ treated with ancef, Rubella immune -Encourage ambulation, monitor and control pain with Motrin, tylenol PRN, resume regular diet, monitor lochia -encourage breast feeding -hemoglobin 10.7 (8/10) -discuss d/c Physical Exam General: Alert, oriented. No acute distress. Cardiac: Regular rate and rhythm, no murmurs/rubs/gallops. Respiratory: Clear to auscultation bilaterally a/p, no wheezes/rales/rhonchi. No increased work of breathing. Symmetrical chest rise. No respiratory distress. Abdomen: Soft, nontender, nondistended. Bowel sounds present. Uterus: Uterine fundus firm, palpable 1 cm below umbilicus. Surgical scar clean and dry Lower Extremities: No lower extremity edema or swelling. No deep calf pain. Peng's negative bilaterally. Results & Data ([facility]) Vital Signs (Past 12 Hours) Vital Signs Temp Pulse Resp BP Pulse Ox 09/22/20 23:40 36.5 C 58 L 18 94/58 L 99
[2020-09-23] MEDS: PRENATAL VITAMIN 1 TAB PO SCH (08:44)
[2020-09-23] MEDS: IBUPROFEN 600 MG TAB PO PRN ×2 (08:44→13:18)
[2020-09-23] MEDS: FERROUS SULFATE 325 MG TAB PO SCH (08:44)
[2020-09-23] MEDS: SIMETHICONE 80 MG CHEW PO SCH ×2 (08:44→12:39)
[2020-09-23] MEDS: DOCUSATE SODIUM 100 MG CAP PO SCH (08:44)
--- NOTE | 2020-09-26 16:07 | Discharge Summary ---
Date of Service September 26, 2020 Admission HPI Per Admitting Provider c/s at 37 weeks for anti-E issues Admission Exam (Per Admitting) Constitutional WD/WN, vitals as above well developed and well nourished Respiratory normal respiratory effort, lungs clear to auscultation normal respiratory effort Cardiovascular RRR, no murmur, no edema Gastrointestinal (Abdomen) normal bowel sounds, soft, nontender, no hepatosplenomegaly Discharge Data Consultations 09/20/20 06:42 Consult Anesthesiology Stat Procedures Performed Operation Date: 09/20/20 08:50 Actual Procedures p Section in LD (Delivery of Baby Through Abdominal Incision) living male child at 1020(Bilateral) - Lillian Singh MD, [facility] Course (1) Encounter for care and examination after delivery: stable for d/c home, instructions reviewed. script sent after ok on pa pdmp. reassured about bm. f/u 6wk pp check. Coding Level of Care Code None Diagnoses Encounter for care and examination after delivery Z39.2
== END 2020-09-23 14:41 | disposition home or self-care (01) | DRG 788 ==
LOC: 4S1 06:39 → EDSTATUS 07:30 → 4S2 14:38
DX: O36.0930 Maternal care for other rhesus isoimmunization, third trimester, not applicable or unspecified; Z37.0 Single live birth; Z3A.37 37 weeks gestation of pregnancy